=== PATIENT | male | born 1965 | race Caucasian/White ===

== ENCOUNTER 2016-08-29 17:55 | Inpatient (IN) | payer MEDICAID ==
[~2016-08-29] VITALS: Ht 185.4 cm; Wt 188.0 kg
--- NOTE | ~2016-08-29 | ER ---
PATIENT'S NAME: HARESH PRINCE [facility] AGE: 50 Y [address] ROOM: [place] [address] LOCATION: [facility] [place] ADMIT DATE: 08/29/2016 ER/Outpatient Report DISCHARGE DATE: FAMILY PHYSICIAN: RENU LAMAS ATTENDING PHYSICIAN: NITA DANIELLE Admission date and time documented are on the medical record. I saw the patient at 1815 hours. CHIEF COMPLAINT: Right leg pain and swelling. HISTORY OF PRESENT ILLNESS: This patient is a 50-year-old male who presented with right leg pain and swelling. It started last night. It has gotten a lot worse as far as the pain and the swelling goes today and unable to walk. He has been on Xarelto, but was stopped 1 month ago. He has a history of DVT. No chest pain or shortness of breath. No abdominal pain, nausea, vomiting, or diarrhea. No urinary symptomatology. No lightheadedness, dizziness, syncope, or near syncope. No fall or trauma. No recent colds, coughs, flus, fever, chills, or sweats. No headache, eyes, ears, nose, throat, neck, or spine pain. No skin eruptions or rash. Does have insulin-dependent diabetes. No other endocrine problems. No neuro changes or psych issues. HOME MEDICATIONS: See attached medication list. ALLERGIES: PENICILLIN. SOCIAL HISTORY: Nonsmoker, nondrinker. SIGNIFICANT PAST MEDICAL HISTORY: Morbid obesity, insulin-dependent diabetes mellitus type 2, hypertension, atherosclerotic ischemic heart disease with coronary artery disease, status post myocardial infarction, remote alcohol abuse, DVT, and cirrhosis. OPERATIONS: Umbilical herniorrhaphy, cystoscopy. REVIEW OF SYSTEMS: All systems reviewed by me are negative with the exception of those discussed in the history of present illness. PATIENT'S NAME: HARESH PRINCE [facility] AGE: 50 Y [address] ROOM: [place] [address] LOCATION: [facility] [place] ADMIT DATE: 08/29/2016 ER/Outpatient Report DISCHARGE DATE: FAMILY PHYSICIAN: RENU LAMAS ATTENDING PHYSICIAN: NITA DANIELLE PHYSICAL EXAMINATION: VITAL SIGNS: Temperature 100, tympanic, pulse 97, respirations 20, blood pressure 121/65, and O2 sat on room air is 97%. HEAD: Normocephalic. EYES: Extraocular muscles intact. PERRL. EARS, NOSE, THROAT: Clear. Mucous membranes moist. Teeth, jaw intact. NECK: No nuchal rigidity. No thyromegaly or cervical adenopathy. No tenderness. SPINE: Negative. LUNGS: Clear. No rales, rhonchi, or wheezes. HEART: Regular. Pulses are palpable. ABDOMEN: Obese, soft, nondistended, nontender. Good bowel tones. No organomegaly or abnormal mass palpable. EXTREMITIES: Swelling and pain in the right lower extremity. Some red streaking. Not hot to the touch. NEUROVASCULAR: Intact. Pulse intact. LABORATORY DATA: Serum acetone was negative. Venous pH was 7.50. White count was 3700, 57 segs, 31 lymphs, 8 monos, 4 eos, 1 baso, hemoglobin is 10.9 with hematocrit 34.6, and platelet count was 102,000. Sed rate is elevated at 38. PTT was 25, pro-time is 11.4 with an INR 1.1. CMS was normal except for an elevated glucose 407, low calcium of 8.4, CPK was 51. CRP was 1.3. Lactate was 2.4. Procalcitonin was 0.07. Hemoglobin A1c is pending. Venous Doppler study of the right leg showed DVT, [id number] common femoral, positive cath. EMERGENCY DEPARTMENT COURSE: I did give the patient Xarelto 20 mg orally in the emergency room. IMPRESSION: 1. Deep vein thrombosis, right leg, involving the common femoral. The patient has increased pain and swelling in the right leg. 2. Hypertension. 3. Insulin-dependent diabetes mellitus type 2, poorly-controlled. 4. Morbid obesity. 5. Atherosclerotic ischemic heart disease with coronary artery disease. 6. Past history of alcohol abuse with cirrhosis. PLAN: Discussed the patient with Dr. Au, hospitalist. We will admit the patient to observation MSU. Again, we did start him on Xarelto. Discussion ensued with the patient concerning my findings and recommendations, he understands. PATIENT'S NAME: HARESH PRINCE [facility] AGE: 50 Y [address] ROOM: [place] [address] LOCATION: [facility] [place] ADMIT DATE: 08/29/2016 ER/Outpatient Report DISCHARGE DATE: FAMILY PHYSICIAN: RENU LAMAS ATTENDING PHYSICIAN: NITA DANIELLE MD LUPE NGUYEN/gabriele /[id number] d: 08/29/16 2322 t: 08/30/16 1813, OUTPATIENT REPORT
--- NOTE | ~2016-08-29 | ENPV ---
Vascular Lower Extremities DVT Study Procedure Demographics Patient Name HARESH PRINCE Date of Study 09/01/2016 Patient Number [id number] Gender Male Date of 1965 Age 50 Visit Number [id number] Height Accession Number [id number] Weight Room Number G3217 BSA BMI Referring Osman King MD Physician MD Physician Cheyenne Melgar Physician Ordering Physician Wellhead Pumper Director Of Operations [facility]air [facility] Conclusions Summary Evidence of Chronic DVT in left proximal popliteal vein. Procedure Type of Study: Veins:Lower Extremities DVT Study, Lower Extremity Left. Indications for Study:Pain in Limb and Swelling of Limb. Appropriate Use Criteria:9 Patient Status:Routine. Study Location:Inpatient Portable. Technical Quality:Limited visualization due to body habitus. Risk Factors - The patient's risk factor(s) include: orally-treated diabetes mellitus, treated dyslipidemia, obesity, lack of physical activity and treated and controlled arterial hypertension. Velocities are measured in cm/s ; Diameters are measured in cm Left Lower Extremities DVT Study Measurements Left 2D and Doppler Measurements + + + + +------+------+ + !Location !Visualized!Compressibility!Thrombosis!Signal!Reflux!Reflux ! ! ! ! ! ! ! !(sec) ! + + + + +------+------+ + !GSV Thigh !Yes !Yes !None !Phasic! ! ! + + + + +------+------+ + !Common !Yes !Yes !None !Phasic! ! ! !Femoral ! ! ! ! ! ! ! + + + + +------+------+ + !Prox !Yes !Yes !None !Phasic! ! ! !Femoral ! ! ! ! ! ! ! + + + + +------+------+ + !Mid Femoral!Yes !Yes !None ! ! ! ! + + + + +------+------+ + !Dist !Yes !Yes !None !Phasic! ! ! !Femoral ! ! ! ! ! ! ! + + + + +------+------+ + !Popliteal !Yes !Yes !Chronic !Phasic! ! ! + + + + +------+------+ + !Gastroc !Yes !Yes !None ! ! ! ! + + + + +------+------+ + !PTV !Yes !Partial ! ! ! ! ! + + + + +------+------+ + !Peroneal !No ! ! ! ! ! ! + + + + +------+------+ + Impressions Left Impression Evidence of chronic deep vein thrombosis in the proximal popliteal vein. Signature dtt: TRAVIS PÉREZ dtd: 09/01/16 1347 Physician Self Virgen
--- NOTE | ~2016-08-29 | CON ---
PATIENT'S NAME: HARESH PRINCE [facility] AGE: 50 Y [address] ROOM: [place] [address] LOCATION: [place] ADMIT DATE: 08/29/2016 Consultation DISCHARGE DATE: FAMILY PHYSICIAN: RENU LAMAS MD ATTENDING PHYSICIAN: NITA DANILELE DATE OF CONSULTATION: 09/01/2016 REFERRING PHYSICIAN: David Liu MD REASON FOR VISIT/CONSULTATION: Venous stasis to bilateral lower extremities. HISTORY OF PRESENT ILLNESS: This is a 50-year-old male patient who was admitted to [facility] with a right lower leg DVT. He reports he has had 4 to 5 lower leg DVTs since 2012. He has previously been on Xarelto but suffered from a GI bleed. He reports in shelter he was on Coumadin. He also has a significant history of uncontrollable diabetes mellitus, type 2; essential hypertension; coronary artery disease; and morbid obesity. He quit smoking in 2006. He reports prior to admission, he noticed severe right lower extremity pain. He presented to the emergency room for further evaluation. The patient denies PE, denies heart failure, and chest pain. He has been instructed to wear gradient compression stockings but currently does not. He has had an Unna boot in the past due to venous insufficiency. He has also had venous ulcerations in the past. Currently, he has no ulcers to his lower extremities. The patient is sedentary and on disability. He does endorse intermittent claudication symptoms. Arterial duplex to the right leg showed no significant peripheral arterial disease. He denies fevers, chills, or sweats. He denies nausea or vomiting. He denies changes in bowel habits. He reports his blood sugars usually run in the 300s. He reports a good oral intake. PAST MEDICAL HISTORY: 1. Type 2 diabetes mellitus. 2. History of 4 to 5 DVTs since 2012. 3. Morbid obesity. 4. Essential hypertension. 5. Coronary artery disease. 6. Venous insufficiency. 7. Melena stools. 8. Depression. 9. Hepatitis C. PATIENT'S NAME: HARESH PRINCE [facility] AGE: 50 Y [address] ROOM: [place] [address] LOCATION: [place] ADMIT DATE: 08/29/2016 Consultation DISCHARGE DATE: FAMILY PHYSICIAN: RENU LAMAS MD ATTENDING PHYSICIAN: NITA DANIELLE PAST SURGICAL HISTORY: 1. Abdominal hernia repair. 2. Kidney stone removal. 3. Skin graft to lower leg. FAMILY HISTORY: The patient's parents suffered from diabetes. He also reports blood clots run in his family. Interestingly, he does not report being tested for blood genetic mutations. SOCIAL HISTORY: The patient lives with his daughter in [place], [place]. He is on disability. He quit smoking in 2006. He has a remote history of illegal substances, he reports he quit over 20 years ago. ALLERGIES: PENICILLIN. MEDICATIONS: Pertinent to this dictation: IV heparin. Please refer to the medication administration record for further details. REVIEW OF SYSTEMS: A 10-point review of systems was completed and all are negative except as mentioned above in the HPI. PHYSICAL EXAMINATION: VITAL SIGNS: Temperature 97.9, pulse 74, respirations 17, blood pressure 104/74, and pulse oximetry 96% on room air. Height 6 feet and 1 inch and weight is 188.0 kg. GENERAL: The patient is alert. Obese in nature. In no acute distress. HEENT: Head; normocephalic and atraumatic. Missing teeth noted. NECK: Short, obese. CHEST: Respirations even and unlabored. ABDOMEN: Round and obese. NEUROLOGIC: Grossly nonfocal. EXTREMITIES: +2 pedal pulses. +2 edema to the left leg and +1 edema to the right leg. Dark hemosiderin staining to bilateral lower legs. Capillary refill intact. Extremities are warm to touch. No ulceration noted. MUSCULOSKELETAL: Right calf tenderness. Positive Homans sign. SKIN: No open ulcers to lower legs, please see extremity assessment. Heels intact. Buttocks intact. Chronic venous dermatitis scaling to posterior legs. LABORATORY AND DIAGNOSTIC DATA: PATIENT'S NAME: HARESH PRINCE [facility] AGE: 50 Y [address] ROOM: [id number] [place] [id number] LOCATION: [place] ADMIT DATE: 08/29/2016 Consultation DISCHARGE DATE: FAMILY PHYSICIAN: RENU LAMAS MD ATTENDING PHYSICIAN: NITA DANIELLE White blood cell count 3.5, hemoglobin 10.5, hematocrit 34.6, and platelets 85,000. Sodium 139, potassium 4.0, chloride 105, bicarbonate 26, BUN 11, creatinine 0.8, and glucose 105. Prothrombin time of 12.5, INR of 1.2. Hemoglobin A1c is 10.0. Procalcitonin is 0.07. Lower extremity venous Doppler showed acute and chronic DVT to the right leg. Arterial duplex showed no significant PAD to right leg. ASSESSMENT AND PLAN: Again, this is a 50-year-old male patient who was admitted to [facility] with a right lower leg deep venous thrombosis. Wound Care is consulted to evaluate and assess venous staining to bilateral lower extremities. 1. Acute and chronic right lower extremity deep venous thrombosis. The patient is on heparin. Bridging to Coumadin. Hospitalist is managing. Send out labs for genetic blood mutations. 2. Venous insufficiency. The patient currently has no ulcers, but has had in the past. He has edema present. He has had an Unna boot therapy. He would benefit from compression therapy. Discussed the case with Dr. Liu. We will have the [facility] RN apply bilateral lower leg Unna boots today. The patient lives in [place] and has followed up with [facility] as well as his PCP, TATYANA Gross for Unna boot changes in the past. The patient is negative for peripheral arterial disease. Discussed elevation. Discussed ankle/calf pump muscle exercises. 3. Uncontrolled type 2 diabetes mellitus. Hemoglobin A1c is 10.0. Diabetic education on board. On sliding scale insulin and Levemir. 4. Morbid obesity. Discussed lifestyle modifications. 5. Essential hypertension. Stable. I would like to thank Dr. Liu for this consultation. JOSE CARLOS TOBIN APRN FOR MD VADIM ANGEL/gabriele /[id number] d: 09/01/161709 t: 09/11/161811, CONSULTATION REPORT
--- NOTE | ~2016-08-29 | ENPV ---
Vascular Lower Extremities DVT Study Procedure Demographics Patient Name HARESH PRINCE Date of Study 08/29/2016 Patient Number [id number] Gender Male Date of 1965 Age 50 Visit Number [id number] Height Accession Number [id number] Weight Room Number G3217 BSA BMI Referring Shiv Davis MD Interpreting Justina Mejia MD Physician Physician Physician Ordering Physician Shiv Davis Single Pointed Operator Long Chain Beamer Kari Diallo [facility] Conclusions Summary There is moderate interstitial edema noted below the knee in the calf and ankle/foot. Partially occlusive thrombus within the superficial femoral vein mid to lower aspect appears chronic. Occlusive thrombus within the lower leg - posterior tibial and peroneal veins - is likely acute. IMPRESSION: ACUTE AND CHRONIC DVT IN THE RIGHT LEG. Procedure Type of Study: Veins:Lower Extremities DVT Study, Lower Extremity Right. Patient Status:Routine. Study Location:ER. Technical Quality:Poor visualization due to body habitus. Risk Factors - The patient's risk factor(s) include: orally-treated diabetes mellitus, treated dyslipidemia, obesity, lack of physical activity and treated and controlled arterial hypertension. Velocities are measured in cm/s ; Diameters are measured in cm Right Lower Extremities DVT Study Measurements Right 2D and Doppler Measurements + + + + +------+------+ + !Location !Visualized!Compressibility!Thrombosis!Signal!Reflux!Reflux ! ! ! ! ! ! ! !(sec) ! + + + + +------+------+ + !GSV Thigh !Yes !Yes !None !Phasic! ! ! + + + + +------+------+ + !Common !Yes !Yes !None !Phasic! ! ! !Femoral ! ! ! ! ! ! ! + + + + +------+------+ + !Prox !Yes !Yes !None !Phasic! ! ! !Femoral ! ! ! ! ! ! ! + + + + +------+------+ + !Mid Femoral!Yes !Partial !Chronic !Phasic! ! ! + + + + +------+------+ + !Dist !No !Partial !Chronic !Phasic! ! ! !Femoral ! ! ! ! ! ! ! + + + + +------+------+ + !Popliteal !Yes !No !None !Phasic! ! ! + + + + +------+------+ + !PTV !Yes !No !Sub-acute !Absent! ! ! + + + + +------+------+ + !Peroneal !Yes !No !Sub-acute !Absent! ! ! + + + + +------+------+ + Left Lower Extremities DVT Study Measurements Left 2D and Doppler Measurements + + + + +------+------+ + !Location !Visualized!Compressibility!Thrombosis!Signal!Reflux!Reflux ! ! ! ! ! ! ! !(sec) ! + + + + +------+------+ + !Common !Yes !Yes !None !Phasic! ! ! !Femoral ! ! ! ! ! ! ! + + + + +------+------+ + Signature dtt: Skyler Horn dtd: 08/29/16 1913 Physician Self Edit
--- NOTE | ~2016-08-29 | CON ---
PATIENT'S NAME: HARESH PRINCE [facility] AGE: 51 Y [address] ROOM: [place] [address] LOCATION: [facility] [place] ADMIT DATE: 08/29/2016 Consultation DISCHARGE DATE: 09/09/2016 FAMILY PHYSICIAN: RENU LAMAS MD ATTENDING PHYSICIAN: Travis Thompson ADDENDUM: Colonoscopy was done on 09/04/2016. A biopsy was done from the patchy areas of inflammation which was at the ascending colon distal to cecum. MD JOCELYN FERREIRA/gabriele /[id number] d: 12/25/16 2234 t: 12/28/16 1739, CONSULTATION REPORT
--- NOTE | ~2016-08-29 | CON ---
PATIENT'S NAME: HARESH PRINCE [facility] AGE: 50 Y [address] ROOM: [address] [place], [place] [address] LOCATION: [facility] [place] ADMIT DATE: 08/29/2016 Consultation DISCHARGE DATE: FAMILY PHYSICIAN: RENU LAMAS MD ATTENDING PHYSICIAN: NITA DANIELLE DATE OF CONSULTATION: 09/03/2016 REASON FOR CONSULT: Acute on chronic DVT to right lower extremity and failed anticoagulation. HISTORY OF PRESENT ILLNESS: This is a 50-year-old male admitted to [facility] with right lower leg DVT. Since admission, he has been started on IV heparin to bridge with Coumadin. The patient was supposed to discharge today as his INR is 2.7; however, upon assessment by hospitalist team, the patient was found to have bloody stools. The patient was also found to have factor V Leiden, heterozygous positive. He reports that he has had 4 to 5 lower leg DVTs since 2012. The patient has previously trialed Xarelto, but suffered a GI bleed at that time. He also reports of a history of being on Coumadin. Family history is significant for DVTs as well. He reports that his sister and his father both from pulmonary embolisms. The patient denies any pulmonary embolism in his history. Venous duplex revealed chronic DVT to left popliteal vein, and on the right side, a partially occlusive superficial femoral vein with chronic clot and occlusive acute thrombus in the posterior tibial and peroneal veins. The patient has a history of diabetes mellitus, type 2, uncontrolled; essential hypertension, coronary artery disease, and morbid obesity. The patient reports that he does have a tobacco history; however, he quit smoking in 2006. His largest complaint today is severe right lower extremity pain. He denies any shortness of breath, chest pain, nausea, vomiting, or diarrhea. He denies any abdominal pain. Denies any lightheadedness or dizziness. Positive for bloody stools. The patient reports to have a history of chronic venous insufficiency and that he has had Unna boots in the past. The patient has been seen by Wound Care on this visit, and he is currently in Unna boots per Wound Care. The patient has no open venous ulcers. The patient does complain of claudication; however, arterial duplex was unimpressive with no significant peripheral arterial disease. PAST MEDICAL HISTORY: 1. Type 2 diabetes mellitus. 2. Previous DVTs, multiple, since 2012. 3. Morbid obesity. 4. Essential hypertension. 5. Coronary artery disease. 6. Venous insufficiency. PATIENT'S NAME: HARESH PRINCE [facility] AGE: 50 Y [address] ROOM: [place] [address] LOCATION: [facility] [place] ADMIT DATE: 08/29/2016 Consultation DISCHARGE DATE: FAMILY PHYSICIAN: RENU LAMAS MD ATTENDING PHYSICIAN: NITA DANIELLE 7. Melenic stools. 8. Depression. 9. Hepatitis C. PAST SURGICAL HISTORY: 1. Abdominal hernia repair. 2. Kidney stone removal. 3. Skin graft to lower leg. FAMILY HISTORY: Mother with cirrhosis of the liver. Father with coronary artery disease, diabetes, and blood clots. The patient reports that his father of pulmonary embolism. Sister also of a pulmonary embolism. Daughter with hiatal hernia and gastric reflux. SOCIAL HISTORY: The patient lives with his daughter in [place], [place]. The patient is currently on disability. He denies any current tobacco, illegal substance abuse, or alcohol use. He does have a history of illegal substance abuse which he states he quit 20 years ago. CURRENT MEDICATIONS: See medication reconciliation. ALLERGIES: NO KNOWN ALLERGIES. REVIEW OF SYSTEMS: A 10-point review of systems completed, positives addressed in the History of Presenting Illness. PHYSICAL EXAMINATION: VITAL SIGNS: Temperature 98.4, heart rate 78, respiratory rate 16, blood pressure 116/63, and oxygen saturation is 96%. GENERAL: The patient is morbidly obese, in no acute distress. He is alert and oriented x3. Pain to right medial thigh on palpation. SKIN: Warm, pink, and dry. No rashes or ulcerations. HEENT: Head: Normocephalic and atraumatic. Ears: Without drainage. Eyes: Sclerae are white. Conjunctivae are pink. Extraocular movements intact. PERRLA. Nose: Without drainage. Throat: Oral mucosa pink and moist. No exudate or erythema. NECK: Without adenopathy. No evidence of JVD. Trachea midline. No carotid bruit. RESPIRATORY: Lung sounds clear to auscultation bilaterally. Even and unlabored. PATIENT'S NAME: HARESH PRINCE [facility] AGE: 50 Y [address] ROOM: [address] [place], [place] [address] LOCATION: [facility] [place] ADMIT DATE: 08/29/2016 Consultation DISCHARGE DATE: FAMILY PHYSICIAN: RENU LAMAS MD ATTENDING PHYSICIAN: NITA DANIELLE CARDIOVASCULAR: Regular rate and rhythm. S1 and S2. No murmur or extra sounds. ABDOMEN: Soft, nontender, and obese. Bowel sounds active x4. EXTREMITIES: Patient with Unna boots bilaterally per Wound Care. The patient has no open ulcers at this time. Radial and femoral pulses 2+. Swelling and erythema to right medial thigh. No cyanosis. Active range of motion throughout. NEUROLOGICAL: No focal deficits. Strength equal bilaterally at 5/5. LABORATORY DATA: Hematology from September 02: White blood cell count 3.5, hemoglobin 10.3, hematocrit 34.0, and platelets 86. INR 2.7 and PTT 30.3. ASSESSMENT AND PLAN: 1. Acute on chronic right lower extremity deep venous thrombosis. The patient has currently failed anticoagulation with recurrent gastrointestinal bleed. The patient also has a significant family history of from pulmonary embolism as well as a significant personal history of lower extremity deep venous thromboses. Therefore, the patient is a candidate for IVC filter placement with Dr. Dominguez to prevent embolus to the lungs. Dr. Dominguez discussed risks and benefits with the patient, and the patient is in agreement with the plan. The plan is to take the patient to the cathode maker for an IVC filter placement today. We will go ahead and transfuse the patient with 2 units of FFP to bring the INR down. INR is currently 2.7. We will recheck PT and INR after transfusion for a goal of INR of less than 2. The patient's Coumadin has been placed on hold. He continues on a heparin drip. We will stop this prior to intervention. 2. Chronic venous insufficiency. The patient is currently in Unna boots and tolerating well. 3. Coronary artery disease. The patient is asymptomatic. Usually, the patient is on Plavix; however, this is on hold currently for the bleeding. Thank you for your consultation and for allowing us to participate in the care of this patient. PEDRITO LUNDBERG APRN FOR MD KATHY ANGEL/gabriele /[id number] d: 09/03/16 1254 t: 09/11/16 1815, CONSULTATION REPORT
--- NOTE | ~2016-08-29 | CATH ---
Peripheral Diagnostic + Interventional Report Demographics Patient Name NIKI Fuentes Gender Male Date of 1965 Age 50 year(s) Patient Number [id number] Date of Study 09/03/2016 Visit Number [id number] Room Number G3217 [place] [id number] Ht 154.94 cm Wt 188 kg Referring [facility] Primary Physician Physician Geraldine MCBRIDE Performing [facility] Secondary Physician Physician Geraldine MCBRIDE Diagnostic [facility] Assisting Physician Physician Geraldine MCBRIDE Interventional [facility] Physician Boxing Inspector Physician Geraldine MCBRIDE Findings and Conclusions Peripheral Findings and Conclusions Successful deployment of a retrievable IVC filter. Peripheral Recommendations Please restart oral anticoagulation if able to after GI work up. f/u in [facility] clinic in 3 months and if able to tolerate OAC without bleeding issues would like to retrive the filter. Procedure Description The patient was brought to the diagnostic cardiac catheterization-EP laboratory in the fasting, non-sedated state. Informed consent was obtained in the written and verbal form after the risks and benefits were explained. The patient had no further questions and agreed to proceed. The planned puncture-incision site(s) were shaved and prepped with ChloraPrep. After a three minute dry time the patient was draped in the usual sterile manner. Conscious sedation and pain control medications were delivered by a registered nurse under physician guidance. Surface ECG rhythm, blood pressure measurement, supplemental oxygen, and pulse oximetry were monitored throughout the procedure. Ultrasound was used to evaluate vessel patency and to aid in access. Inferior Venacava Filter Placement: After an Inferior Venocavagram was performed and IVC filter was placed below the level of the renal veins. Post venocavogram after IVC filter placed showed good position without any extravasation of contrast. The patient was transferred to the nursing floor with continuous monitoring via cart accompanied by a nurse. The patient left the laboratory in stable condition. Peripheral Procedure Description Retrievable IVC filter placement for acute GI bleeding on coumadin in patient with acute DVT and Factor V Leiden deficiency. Diagnostic Cath Status: Urgent Procedure Procedure Type Peripheral Cath Diagnostic Procedure Peripheral vascular Intervention:IVC Filter: The procedure was explained in detail to the patient. Risks, complications and alternative treatments were reviewed. Written consent was obtained. Medications Reviewed with Patient prior to Procedure. Angiographic Findings Procedure Data Procedure Date Date: 09/03/2016Start: 02:57 PMEnd: 03:35 PM Entry Locations - Percutaneous access was performed through the Right Femoral vein (Primary location). A 7 Fr sheath was inserted. Hemostasis was successfully obtained using Manual Compression. Closure Comments: Pressure held by Simran. Procedure Medications Order and Administration + + +-------+------+ !Time !Medication !Dosage !Route ! + + +-------+------+ 09/03/2016 02:51 PM !Fentanyl !50 mcg !I.V. ! + + +-------+------09/03/2016 02:59 PM !Versed !1 mg !I.V. ! + + +-------+------09/03/2016 03:03 PM !Versed !1 mg !I.V. ! + + +-------+------+ 09/03/2016 03:31 PM !Fentanyl !50 mcg !I.V. ! + + +-------+------+ Contrast Material - Isovue 13716 ml Fluoroscopy Time: Diagnostic: 3:00 minutes. Total: 3:00 minutes. Fluoroscopy Dose: Diagnostic: 257 mGy. Total: 257 mGy. Estimated Blood Loss: 5 ml. Medical History Allergies - Penicillin. Risk Factors The patient risk factors include:peripheral arterial disease, obesity, physical activity, uncontrolled hypertension, orally-treated diabetes mellitus, dyslipidemia, former tobacco use and prior heart failure . Admission Data Admission Date: 08/29/2016 Admission Time: 08:18 PM Admit Source: Emergency department Insurance Payors: Medicaid. Hemodynamics Condition: Rest O2 Consumption: Estimated: 318.69Heart Rate: 82 bpm Shunts Oxygen Values O2 Capacity 138.72 O2 Consumption 318.69 Signatures dtt: GERALDINE HOPKINS dtd: 09/03/16 1457 Physician Self Edit
--- NOTE | ~2016-08-29 | CON ---
PATIENT'S NAME: VLADISLAV PRINCE [facility] AGE: 50 Y [address] ROOM: [address] [place] [address] [place] [facility] [place]: 08/29/2016 Consultation DISCHARGE DATE: FAMILY PHYSICIAN: RENU LAMAS MD ATTENDING PHYSICIAN: NITA DANIELLE Consult to Mirtha Macedo. REASON FOR CONSULTATION: Vladislav Prince is a 50-year-old man with left deep venous thrombosis, rectal bleeding, and the heterozygous factor V Leiden mutation. HISTORY OF PRESENT ILLNESS: The history of the present illness is obtained from Mr. Prince whose history is of questionable veracity on occasions; from his physician's market research assistant, Mirtha Macedo PA-C; and from review of the current and old [facility] chart. Mr. Prince was in his normal state of health until 08/28/2016. He lived in [place], [place] with his 27-year-old daughter, 42-year-old son-in-law, and 42- year-old concubine. The patient has been disabled since May 2016 due to leg ulcers related to venous insufficiency and diabetes mellitus. The patient could drive. He did not have a cane or walker though attempts were being made to get him one. He was on no formal occupational or physical therapy program. He was capable of self-care. He could vacuum, clean the garage, and do other light work. The patient has been paroled for 6 months after 16 years [facility] The patient is limited by dyspnea on exertion and bilateral leg pain if he walks more than [id number]. On 08/28/2016, the patient developed right leg swelling, pain, and erythema. The patient was on clopidogrel for anticoagulation therapy and had faithfully taken that. The pain, swelling, and erythema progressed overnight and he called his physicians in [place], [place]. The patient was instructed to report to [facility] and was hospitalized on 08/29/2016. An ultrasound of the right leg revealed acute and chronic deep venous thrombosis. The patient was placed on an unfractionated heparin infusion and oral warfarin. Upon admission, the white count was 3700 with 57% neutrophils and 31% lymphocytes, the hemoglobin was 10.9, the MCV was 85, and the platelets were 102,000. The INR was 1.1, the PTT was 25, and the ESR was 38 mm/hr. The CMS was remarkable for an elevated globulin of 4.6 g/dL, the albumin was 2.8 g/dL, and the glucose was 407 mg/dL. The hemoglobin A1c was 10%. The cholesterol was 117 mg/dL, the HDL cholesterol was 45 mg/dL, and the LDL cholesterol was 49 mg/dL. The prothrombin mutation was not present, but the factor V Leiden mutation was present, heterozygous. The lupus anticoagulant was positive, but PATIENT'S NAME: VLADISLAV PRINCE [facility] AGE: 50 Y [address] ROOM: [place] [address] [place] [facility] [place] DATE: 08/29/2016 Consultation DISCHARGE DATE: FAMILY PHYSICIAN: RENU LAMAS MD ATTENDING PHYSICIAN: NITA DANIELLE the assay was not diagnostic as the patient was on heparin anticoagulation and, in any case, he has never had the assay done before. The patient's right leg swelling, pain, and erythema improved. However, today, the patient developed rectal bleeding. An inferior vena cava filter was placed today after warfarin anticoagulation was reversed with 2 units of fresh frozen plasma. Mr. Prince first developed deep venous thrombosis in the left leg in 2012. He was placed on heparin, then warfarin anticoagulation and took warfarin continually through 2016. That being said there was some confusion because there was no sign he was on it on the reconciliation medication list when he was seen in 2016. The patient complained of rectal bleeding at that point. The patient underwent an upper GI endoscopy. This revealed petechial hemorrhage and erythema of the body and antrum of the stomach along with scattered erosions. The patient also underwent a colonoscopy. This revealed large thrombosed external hemorrhoids. Recommendations for surgical evaluation were made. Topical therapy was administered for the hemorrhoids. The prep was not excellent so the retread mold operator recommended a followup colonoscopy in 1-3 years. The patient was discharged on rivaroxaban. Upon admission to [facility] with this hospitalization, he was only on clopidogrel, but no other direct oral anticoagulant or warfarin. Mr. Prince has multiple risk factors for hyperlipidemia besides being heterozygous for the factor V Leiden mutation. The patient has a body mass index of 54.6 kg/m2 and is relatively sedentary. He has type 2 diabetes mellitus, arterial hypertension, and hyperlipidemia. He has a strong family history of DVT. His father had many episodes of deep venous thrombosis and pulmonary emboli and at age 50. He had a sister age 49 who following bariatric surgery that was complicated by a PE. The patient had a sister who of a "blood clot to the brain" at 40. He does not know if any family members were tested for hereditary thrombophilia. Of course, the patient has chronic venous insufficiency. ACTIVE MEDICAL PROBLEMS, CHRONIC, AND DIAGNOSED: 1. Type 2 diabetes mellitus noted in 2000. The patient's diabetes has been complicated by leg ulcers possibly also due to venous insufficiency. He also has a numb left foot and is on gabapentin for this. His blood sugars usually run 300-400 mg/dL at home. He is on metformin and insulin. 2. ? Essential arterial hypertension ? noted in 1991. This was labile enough to require hospitalization in 2013. 3. Atherosclerotic heart disease? The patient did have an AL in 2000, but this complicated methamphetamine ingestion. The patient did get an PATIENT'S NAME: VLADISLAV PRINCE [facility] AGE: 50 Y [address] ROOM: [place] [address] [place] [facility] [place]: 08/29/2016 Consultation DISCHARGE DATE: FAMILY PHYSICIAN: RENU LAMAS MD ATTENDING PHYSICIAN: NITA DANIELLE. 4. Tobacco use. The patient averaged 2-3 pack per day for 30 years, but has abstained from tobacco since 2006. 5. Class IV obesity. The patient's BMI is 54.6 kg/m2. The patient wants to do bariatric surgery and was working on it until this was complicated. 6. Atherosclerotic vascular disease ? The patient is on pentoxifylline. 7. Alcoholism. The patient has abstained since 2006 and he was an alcoholic before and goes to Alcoholics Anonymous. He would drink homemade corn whiskey. He would drink to get drunk for many years. 8. Drugs of abuse. The patient has used amphetamine, LSD, cocaine, heroin, and psilocybin over the years, but has abstained since 2006. 9. Depression, noted in 2013. The patient had anhedonia after his , he was placed on sertraline. 10. Nephrolithiasis, on one occasion in 2006. 11. Allergic rhinitis in the spring treated with antihistamines. 12. 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 13. Cholelithiasis noted on sonogram in 2016. There was one gallstone. 14. Grade 2 pseudonormal diastolic dysfunction with moderate concentric left ventricular hypertrophy. 15. Chronic venous insufficiency. The patient has left leg DVT in 2012 and now on the right. 16. Migraine headaches for many years treated with nonsteroidals and Tylenol. ACUTE MEDICAL ILLNESS (RESOLVED), PAST SURGERIES, INJURIES: 1. 1976, left ankle fracture. 2. 2000, hepatitis C, resolved after the patient underwent parenteral injections for 1 year. This was a very rigorous regimen. Indeed his anti-HCV titer is positive. 3. 2006, left wrist fracture. 4. 2006, cystoscopy with stone removal. 5. 2014, umbilical herniorrhaphy. 6. 2014, left leg surgery with skin graft. MEDICATIONS UPON HOSPITALIZATION: 1. Acetaminophen. 2. Clopidogrel 75 mg p.o. daily. 3. Furosemide 20 mg p.o. b.i.d. 4. Gabapentin 100 mg p.o. t.i.d. 5. Hydrochlorothiazide 25 mg p.o. daily. 6. Insulin glargine 25 units subcu b.i.d. 7. Insulin lispro sliding scale. 8. Lisinopril 10 mg p.o. q.24 h. PATIENT'S NAME: VLADISLAV PRINCE [facility] AGE: 50 Y [address] ROOM: [place] [address] [place] [facility] [place] DATE: 08/29/2016 Consultation DISCHARGE DATE: FAMILY PHYSICIAN: RENU LAMAS MD ATTENDING PHYSICIAN: NITA DANIELLE 9. Metformin 1000 mg p.o. b.i.d. 10. Metoprolol 50 mg p.o. b.i.d. 11. Nitroglycerin 0.4 mg sublingually p.r.n. 12. Pentoxifylline 400 mg p.o. b.i.d. 13. KCl 20 mEq p.o. daily. ADVERSE REACTIONS TO MEDICATIONS, TRANSFUSIONS, ALLERGIES: 1. Penicillin has led to urticaria. 2. Fresh frozen plasma 2 units on 09/03/2016. Tobacco: 2-3 pack per day for 30 years abstained since 2006. Alcohol: Abstained since 2006-on Alcoholics Anonymous. The patient drank heavily for many years and drank to get drunk almost everyday. Caffeine: a. Fortified diet sodas a day. b. Two pots of coffee a day. c. A jar of tea daily in the summer. Drugs of abuse: The patient has not abused any illegal drugs since 2006, but he has used methamphetamine, LSD, cocaine, heroin, and mushroom in the past. FAMILY HISTORY: 1. Father many DVTs and pulmonary emboli at age 50. 2. Sister age 49 of a PE complicating bariatric surgery. 3. A sister of a blood clot to the brain. IMMUNIZATIONS HISTORY: Not obtained. SOCIAL HISTORY: The patient was born in [facility] and left school after 9th grade and got up to the 10th grade while attempting to get his GED. The patient was in [facility] [employer] [facility] for many years, but was recently paroled. The patient has ta daughter who currently lives with him, a daughter in [place], [place]. He has a child in [place], 2 in [place], and 1 in [place]. He has been on 2 occasions and is currently living with a concubine. He is not a religion goer. REVIEW OF SYMPTOMS: 1. Chronic productive cough, greenish yellow sputum. 2. Occasional heartburn treated with Pepto-Bismol. 3. Dental problems. 4. Orthostatic dizziness. The patient sometimes falls when standing on a couple of occasions. 5. Frontal and occipital headaches for 20 years about monthly. Rarely associated with nausea, but positive photophobia and relieved by aspirin PATIENT'S NAME: VLADISLAV PRINCE [facility] AGE: 50 Y [address] ROOM: [place] [address] [place] [facility] [place] DATE: 08/29/2016 Consultation DISCHARGE DATE: FAMILY PHYSICIAN: RENU LAMAS MD ATTENDING PHYSICIAN: NITA DANIELLE and naproxen. PHYSICAL EXAMINATION: VITAL SIGNS: Pulse 80 and regular, blood pressure is 115/60, respiratory rate 18, temperature 98.4, and SpO2 91% on room air. Height upon admission 73 inches, weight 188 kg (414 pounds), and BMI 54.6 kg/m2. GENERAL: Well-developed obese 50-year-old, male, in no acute distress. HEENT: Teeth in poor repair. LYMPH NODES: None palpable. NECK: Without JVD or carotid bruits. SKIN: Nevi, warts, seborrheic keratoses, tattoos on the arms. CHEST: Decreased breath sounds. CV: Decreased S1, S2. No murmurs, bruits, or adventitious sounds. ABDOMEN: Healed umbilical herniorrhaphy scar. No masses, tenderness, or organomegaly. GENITALIA AND RECTAL: Uncircumcised. EXTREMITIES: Pulses 2+ in the upper extremities. The patient has Werner wraps on the lower extremities. RECTAL: It is not practical to do as the patient is instructed to lie on his back. IMPRESSION: A 50-year-old man with: 1. Acute right deep venous thrombosis at risk due to class IV obesity, longstanding venous insufficiency, heterozygosity for the factor V Leiden mutation, type 2 diabetes mellitus, chronic liver disease, arterial hypertension, sedentary lifestyle, and hyperlipidemia. It appears the patient was not fully anticoagulated. However, his history is shaky and of questionable veracity. 2. Uncharacterized rectal bleeding x2. The patient has had hemorrhoids in the past. 3. Given the bleeding, it is reasonable to place a removable inferior vena cava filter. We need to keep in mind the hemorrhoids could be a manifestation of increased venous pressure from his liver disease as well. 4. The patient's thrombocytopenia, leukopenia, and anemia could all be related to hypersplenism from portal hypertension from alcoholic liver disease and possibly nonalcoholic fatty liver disease. 5. Anticoagulation recommendations do not change based on his heterozygosity for the factor V Leiden mutation. 6. The patient needs to be on lifelong anticoagulation. RECOMMEND DIAGNOSTIC: Colonoscopy as planned. PATIENT'S NAME: VLADISLAV PRINCE [facility] AGE: 50 Y [address] ROOM: [address] [place] [id number] [place] [facility] [place] DATE: 08/29/2016 Consultation DISCHARGE DATE: FAMILY PHYSICIAN: RENU LAMAS MD ATTENDING PHYSICIAN: NITA DANIELLE TREATMENT: 1. Address the cause of GI bleeding. 2. Discontinue warfarin anticoagulation at this point. PATIENT EDUCATION: 1. Discussed his risk factors for the DVT. 2. Discussed the rationale for the current approach to his treatment. JAIDEN GARCIA MD GKB/modl /[id number] CC: MD Olivia CLOUD MD Anuradha Tunuguntla, MD Franz K Murphy, MD d: 09/03/16 2351 t: 09/07/16 1532, CONSULTATION REPORT
--- NOTE | ~2016-08-29 | HP ---
PATIENT'S NAME: HARESH PRINCE [facility] AGE: 50 Y [address] ROOM: [address] [place] [address] [place]: [facility] [place] ADMIT DATE: 08/29/2016 History & Physical DISCHARGE DATE: FAMILY PHYSICIAN: RENU LAMAS ATTENDING PHYSICIAN: NITA DANIELLE DATE OF SERVICE: CHIEF COMPLAINT: Right lower extremity pain. HISTORY OF PRESENT ILLNESS: This is a 50-year-old male morbidly obese with a history of left DVT last year and positive family history of DVT in both sisters and dad who has comes in with right lower extremity pain, which started last night as per patient. He reported that this morning the pain was still there; however, he went about his daily activity and at around 2 p.m., the pain got severe. He rates the pain as 8/10 at the onset last night and today it went up to a 10 and because of the worsening pain he decided to come into the ER. The patient has a sedentary lifestyle and daughter reports that he does not move around much at home and he just sits in one spot most of the time. Denies chest pain. Denies shortness of breath. Denies headache. He also notes some diarrhea for the last 3-4 days about 3-4 episodes per day, watery, and nonbloody. He reports that he stopped his blood thinner, which was a month ago because of recurrent rectal bleed. This was started by Dr. Armstrong in [place] after which the patient presented there with lower GI bleed, which was found to be rectal bleeding. He denies fever. He also notes some chronic lower quadrant abdominal pain, which has not changed in severity. Denies shortness of breath. REVIEW OF SYSTEMS: The 13 elements of review of systems were asked and as documented in the HPI. The others are negative. PAST MEDICAL HISTORY: Includes coronary artery disease, history of left DVT last year, diabetes, morbid obesity, essential hypertension, and history of kidney stones. SOCIAL HISTORY: Lives with his daughter. Stopped smoking 11 years ago. Smoked for about 20 years 3 packs per day. Stopped smoking while he was in penitentiary. Denies use of alcohol. Denies use of any illicit drugs. FAMILY HISTORY: Both parents . Father in his 60s from aneurysm and blood PATIENT'S NAME: HARESH PR[facility] AGE: 50 Y [address] ROOM: [address] [place] [address] LOC[place]: [facility] [place]MIT DATE: 08/29/2016 History & Physical DISCHARGE DATE: FAMILY PHYSICIAN: RENU LAMAS ATTENDING PHYSICIAN: NITA DANIELLE. Mother alcoholic in her 60s from cirrhosis. He has two sisters with DVT and one has . PAST SURGICAL HISTORY: Includes cardiac cath, umbilical hernia repair, and kidney stone removal. PHYSICAL EXAMINATION: VITAL SIGNS: Blood pressure 140/83, temperature 98.5, respiratory rate 16, pulse 94, and oxygen saturation 95% on room air. GENERAL: Reveals a morbidly obese, young male who is alert, awake, oriented x3, in mild painful discomfort. NEUROLOGIC: Cranial nerves 2 through 12 are intact bilaterally. Sensory is intact bilaterally. Power is 5/5 in both upper extremities and left lower extremity, unable to check power on right lower extremity, secondary to the pain. HEENT: Normocephalic, atraumatic. Pupils equal and reactive to light bilaterally. Pharynx is normal. NECK: Short, obese, features of someone who would have obstructive sleep apnea. EARS: No obvious ear discharge or drainage. CARDIOVASCULAR: Normal S1, S2. Regular rate and rhythm. CHEST: Decreased breath sounds all over the chest field, secondary to obese chest wall. ABDOMEN: Soft, distended, obese. No area of tenderness. No palpable organomegaly. Positive bowel sounds. EXTREMITIES: He has got 1+ pitting pedal edema of the right lower extremity, tender, but there is no joint swelling, erythema, or tenderness. SKIN: He has got chronic venous dermatitis involving the skin of bilateral lower extremity. He has also got tattoo louise over the skin of the upper extremity. LABORATORY DATA: ABG pH 7.50, pCO2 39, and pO2 116. Lactic acid 2.4. WBC 3.7, H and H 10.9/34.6, and platelet 102. Sodium 139, creatinine 1.0, BUN 13, glucose 407. Sodium 138, potassium 4.3, chloride 102, bicarb 28, calcium 8.4, albumin 2.8, AST 38, ALT 47, alk phos 108, total bili 0.6. ESR 38. Hemoglobin A1c 10.0. INR 1.1. CRP 1.3. Procalcitonin 0.07. ASSESSMENT AND PLAN: This is a 50-year-old male with a right lower extremity pain. 1. Acute right lower-extremity deep vein thrombosis, present on admission. We will continue on heparin drip. We will do hemophilia workup, going through his records, this has not been done in the past. So, check factor V Leiden, prothrombin gene mutation, and lupus anticoagulant. 2. Pancytopenia of unknown etiology, probably from bone marrow suppression, PATIENT'S NAME: HARESH [facility] AGE: 50 Y [address] ROOM: [place] [address] LOCATION: [facility] [place] ADMIT DATE: 08/29/2016 History & Physical DISCHARGE DATE: FAMILY PHYSICIAN: RENU LAMAS ATTENDING PHYSICIAN: NITA DANIELLE probably from fatty liver. 3. Diabetes type 2 with hyperglycemia, poorly-controlled. We will start the patient on long-acting insulin. We will most probably discharge him on that. 4. Right lower extremity pain from acute deep vein thrombosis; however, we will also do an arterial duplex scan to rule out any arterial thrombosis. 5. Essential hypertension, present on admission, stable, continue the patient on his medication. 6. Acute diarrhea, unknown etiology, we will check stool for C. diff, stool for ova and parasites. 7. Morbid obesity. Place on diet restriction. 8. Coronary artery disease, no angina, stable. The line of management was explained to the patient who did not have any questions at this time. MD DANIEL PALMER/harmanl /[id number] D: T: 501 HISTORY & PHYSICAL
--- NOTE | ~2016-08-29 | ENPV ---
Vascular Lower Extremities Arterial Duplex Procedure Demographics Patient Name HARESH PRINCE Date of Study 08/31/2016 Patient Number [id number] Gender Male Date of 1965 Age 50 Visit Number [id number] Height Accession Number [id number] Weight Room Number G3217 BSA BMI Referring Osman King MD Physician Physician Cheyenne Davis MD Physician Ordering Cheyenne Davis Sight Mounter Physician Projector Booth Operator Amado Bustos [facility] Conclusions Summary Duplex imaging of the right leg reveals no significant peripheral arterial disease . Procedure Type of Study: Extremities Arteries:Lower Extremities Arterial Duplex, Arterial Lower Extremity Right. Indications for Study:Pain in Limb. Appropriate Use Criteria:9 Patient Status:Routine. Study Location:Inpatient Portable. Technical Quality:Adequate visualization. Risk Factors - The patient's risk factor(s) include: orally-treated diabetes mellitus, treated dyslipidemia, obesity, lack of physical activity and treated and controlled arterial hypertension. Velocities are measured in cm/s ; Diameters are measured in cm LE Duplex Measurements + ++-----+ +----+---+ + ! !!Right! !Left! ! ! + ++-----+ +----+---+ + !Location !!PSV !Wave Desc. ! !PSV!Wave Desc. ! + ++-----+ +----+---+ + !Femoral !!76 !Biphasic ! !83 !Triphasic ! + ++-----+ +----+---+ + !PFA !!44 !Biphasic ! ! ! ! + ++-----+ +----+---+ + !Prox SFA !!123 !Triphasic ! ! ! ! + ++-----+ +----+---+ + !Mid SFA !!85 !Biphasic ! ! ! ! + ++-----+ +----+---+ + !Dist SFA !!88 !Biphasic ! ! ! ! + ++-----+ +----+---+ + !Prox Popliteal !!66 !Biphasic ! ! ! ! + ++-----+ +----+---+ + !Dist Popliteal !!45 !Biphasic ! ! ! ! + ++-----+ +----+---+ + !Mid DIAMOND DIE DRILLER !!53 !Biphasic ! ! ! ! + ++-----+ +----+---+ + !Mid MARIBELL !!31 !Biphasic ! ! ! ! + ++-----+ +----+---+ + !DP !!21 !Biphasic ! ! ! ! + ++-----+ +----+---+ + Signature dtt: TRAVIS PÉREZ dtd: 08/31/16 1104 Physician Self Edit
--- NOTE | ~2016-08-29 | LTR ---
PATIENT'S NAME: HARESH PRINCE [facility] AGE: 50 Y [address] ROOM: [place] [address] LOCATION: [facility] [place] ADMIT DATE: 08/29/2016 Letter DISCHARGE DATE: 09/09/2016 FAMILY PHYSICIAN: RENU LAMAS MD ATTENDING PHYSICIAN: Edelmira Quinn September 09, 2016 To [facility] Re: HARESH PRINCE was seen in consultation on 08/29/2016. Since that time, other developments have occurred. The patient's warfarin anticoagulation was discontinued. A removable inferior vena cava filter was placed by Dr. Angel on 09/03/2016. Dr. Angel recommends removal of this in 3 months if he can tolerate his oral anticoagulation without bleeding. We agree with that recommendation. The patient's colonoscopy was performed by Dr. Norma Stone on 09/04/2016. There was a small patch of inflammation at the ascending colon, distal to the cecum. Otherwise, there was no sign of bleeding. Dr. Stone did not describe any AV malformations, diverticula, or polyps. He did not describe any hernia either. The pathology report revealed focal active colitis. The patient was placed on warfarin anticoagulation again. If he has no excessive bleeding, the patient should be on warfarin anticoagulation indefinitely as long as his risk factors continue to be serious. If the patient were to undergo bariatric surgery and there was marked improvement in his other cardiovascular risk factors, perhaps he would not need lifelong anticoagulation, but this is certainly not the case at this point and may never be. The patient did not need any further specialized Hematology and Oncology followup. The patient was heterozygous for his factor V Leiden mutation, but would have needed lifelong anticoagulation whatever the factor V Leiden mutation status was. REPORT TITLE: MD YANE Guy/gabriele /[id number] PATIENT'S NAME: HARESH PRINCE [facility] AGE: 50 Y [address] ROOM: [place] [address] LOCATION: [facility] [place] ADMIT DATE: 08/29/2016 Letter DISCHARGE DATE: 09/09/2016 FAMILY PHYSICIAN: RENU LAMAS MD ATTENDING PHYSICIAN: Edelmira Quinn CC: MD Olivia Payan MD Franz K Murphy, MD GREGORY E MCCLANAHAN, MD
--- NOTE | ~2016-08-29 | DS ---
PATIENT'S NAME: HARESH PRINCE [facility] AGE: 50 Y [address] ROOM: [id number] [place] [address] LOCATION: [facility] [place] [place] ADMIT DATE: 08/29/2016 Discharge Summary DISCHARGE DATE: 09/09/2016 FAMILY PHYSICIAN: RENU LAMAS MD ATTENDING PHYSICIAN: Edelmira Quinn PRINCIPAL DIAGNOSES: 1. Right leg acute and chronic deep vein thrombosis. 2. Left lower extremity chronic deep vein thrombosis. 3. Diabetes mellitus type 2 with hyperglycemia. 4. Diabetic neuropathy. 5. Diabetic peripheral vascular disease. 6. Morbid obesity. 7. Chronic venous insufficiency. 8. Factor V Leiden disorder, newly diagnosed. PRINCIPAL PROCEDURE: IVC filter placed by Dr. English on September 03, 2016. HOSPITAL COURSE: Please reference any of the admitting data to the history and physical as dictated by Dr. Edelmira Quinn. Briefly, a 50-year-old male, who presented to the hospital with right lower extremity pain and a known history of a DVT. He was found to have an acute right lower extremity DVT, present on admission. He was admitted and started on a heparin drip per DVT protocol. He was given IV and oral analgesia for the pain in his leg. He was started on therapies to mobilize. Coagulopathy workup revealed positive for factor V Leiden disorder. Hematology-Oncology consultation, recommendations were obtained. Further investigation of his lower extremities with arterial duplex showed no significant peripheral artery disease in the right lower extremity or left lower extremity. Further review of venous duplex showed evidence of a chronic DVT in the left proximal popliteal vein. An official read of the right lower extremity showing an area of partially occlusive thrombus in the superficial femoral vein, mid to lower aspect, appearing chronic with the new thrombus noted in the posterior tibial and peroneal veins. He was then started on Coumadin on 08/30/2016. He was also started back on his Plavix at that time for concern of his peripheral vascular disease. As we did laboratory monitoring when bridging with Coumadin and heparin, on the , the patient had noted bloody stools. Anticoagulation was placed on hold and consultation for IVC filter was done with [facility]. FFP was given to reverse the anticoagulation effect, and was actually taken by Dr. English of Cardiology for IVC filter placement. He underwent this procedure without any complication. As for his GI bleed, Dr. Stone of Gastroenterology was consulted. He was given a Suprep on the and taken for a colonoscopy on the . There, he was found to have no apparent cause for the bleeding. There was some concern for external hemorrhoids, but PATIENT'S NAME: HARESH PRINCE [facility] AGE: 50 Y [address] ROOM: [place] [address] LOCATION: [facility] [place] [place] ADMIT DATE: 08/29/2016 Discharge Summary DISCHARGE DATE: 09/09/2016 FAMILY PHYSICIAN: RENU LAMAS MD ATTENDING PHYSICIAN: Edelmira Quinn nothing active. On the , the heparin drip was then resumed as his hemoglobin was stable and no evidence of source of bleeding. He was then given a loading dose of warfarin and started on Proctosol per rectum twice daily. He had no further evidence of rectal bleeding for the remainder of his stay. We observed him over the next few days and trended his INR and his hemoglobin. His hemoglobin remains stable, greater than 10. His INR trended upwards to 1.6, and on the day of discharge, the heparin drip was stopped and he was converted to Lovenox injections. He was given education on self administration. He did so without any complication. It was elected that the patient would go home with Lovenox bridging until INR is greater than 2.0 with goal being 2.0 to 3.0. The remaining of the patient's chronic conditions were maintained with his home medicines. His diabetes mellitus was observed with blood glucose checks before each meal and at bedtime. His insulin regimen was adjusted accordingly and increased from his home regimen as his A1c was 10.0. We increased both his long-acting insulin, provided a corrective sliding scale and a scheduled prandial dosing for each meal. Diabetes education was given. The patient had came in on Plavix and Trental given the patient's coronary artery disease and peripheral vascular disease. Discussion with Cardiology felt that it was in the best interest of the patient to keep those medications on hold while on Coumadin given 2 factors while hospitalized to include the lower GI bleeding as well as a platelet count of 85 and 86 when the patient was initially admitted, even though it had recovered to 120 and 121. The patient will follow up with Cardiology as an outpatient to discuss the further need and use of anti-platelet therapy. The patient was given physical therapy and restorative plan during his hospitalization, and was mobilizing safely; however, was requiring a wheeled walker to ambulate. LABORATORY DATA: Pertinent positives as described above. Most recent CBC showed a white blood cell count of 3.6, hemoglobin of 10.6, hematocrit of 34.7, and a platelet count of 120, this was up from 85 and 86 respectively. Hemoglobin remained greater than 10 during his hospitalization. Most recent chemistry panel on 09/05 showed a glucose of 128, a BUN of 11, a creatinine of 0.7, sodium 141, potassium of 3.9, a chloride of 109, a CO2 of 25, a calcium of 8.2, a total protein of 7.1, an AST of 38, an ALT of 42, an alkaline phosphatase of 90, a total bilirubin of 0.6, magnesium of 2.2, and GFR of greater than 60. Sedimentation rate was 38. Hemoglobin A1c was 10.0. His lipid panel was taken on 08/31, showed a total cholesterol of 117, triglycerides of 115, HDL of 45, and an LDL of 49. INR at discharge was 1.6. Factor V Leiden was positive for heterozygous disease. PATIENT'S NAME: HARESH PRINCE [facility] AGE: 50 Y [address] ROOM: [place] [address] LOCATION: [facility] [place] [place] ADMIT DATE: 08/29/2016 Discharge Summary DISCHARGE DATE: 09/09/2016 FAMILY PHYSICIAN: RENU LAMAS MD ATTENDING PHYSICIAN: Edelmira Quinn RADIOLOGIC IMAGING: None. CONSULTING PROVIDERS: 1. Dr. Dominguez, Vascular. 2. Dr. English, Cardiology. 3. Kari Castellano, [facility], Wound Care. 4. Dr. Lucio Baker, Hematology. PROCEDURE: IVC filter insertion by Dr. English. CARDIOLOGY STUDIES: Venous duplex scan showed chronic DVT in the left proximal popliteal vein and partially occlusive thrombus within the superficial femoral vein, mid to lower aspect, appearing chronic. There was occlusive thrombus within the lower leg in the posterior tibial and peroneal veins, likely acute. Arterial duplex did not show any significant peripheral artery disease. DISCHARGE MEDICATIONS: 1. Furosemide 20 mg p.o. twice daily. 2. Gabapentin 100 mg p.o. 3 times daily. 3. Hydrochlorothiazide 25 mg p.o. every day. 4. Hydrocortisone cream to be applied to the rectum twice daily until stop date 09/12 at 2100 hours. 5. Humalog insulin 4 to 10 units subcutaneous before meals and at bedtime as per sliding scale as follows:. a. Blood glucose 201 to 250 equals 4 units. b. Blood glucose 251 to 300 equals 6 units. c. Blood glucose 301 to 350 equals 8 units. d. Blood glucose 351 to 400 equals 10 units. 6. NovoLog 15 units subcutaneous 3 times daily with meals. 7. Levemir 33 units subcutaneous twice daily. 8. Metoprolol tartrate 50 mg p.o. twice daily. 9. Lisinopril 10 mg p.o. every day. 10. Potassium chloride 20 mEq p.o. every day. PCP to manage based upon lab results. 11. Coumadin 7.5 mg p.o. every day at 1600 hours. PCP to manage and titrate accordingly to goal of 2.0 to 3.0. 12. Acetaminophen/hydrocodone 5/325 mg 1 to 2 tablets p.o. every 4 hours as needed. 13. Glucophage 1000 mg p.o. twice daily. 14. Tylenol 325 to 650 mg p.o. every 6 hours as needed, maximum 4000 mg per day. 15. Nitrostat 0.4 mg sublingual as needed as directed on the bottle. 16. Glucose tablets 16 g p.o. as needed for hypoglycemia. PATIENT'S NAME: HARESH PRINCE [facility] AGE: 50 Y [address] ROOM: [address] [address] LOCATION: [facility] [place] [place] ADMIT DATE: 08/29/2016 Discharge Summary DISCHARGE DATE: 09/09/2016 FAMILY PHYSICIAN: RENU LAMAS MD ATTENDING PHYSICIAN: Edelmira Quinn 17. Aspirin 81 mg p.o. daily. 18. Glucagon 1 mg subcutaneous as needed for hypoglycemia. 19. Lovenox 180 mg subcutaneous twice daily until INR is greater than or equal to 2.0. PCP to manage. A prescription was also written for a standard walker given unsteady gait of the patient. DISCHARGE INSTRUCTIONS: Diet to be ADA. Activity to be as tolerated with wheeled walker. Followups to include: 1. [facility] Cardiology on Friday, September 30, 2016, at 11:45 a.m. There is a plan to remove IVC filter if able to tolerate oral anticoagulation in 3 months' time. 2. To follow up with Dr. Lamas at the [facility] on September 10 at 3:00 p.m., at this time a PT/INR will be drawn. Recommendations for the PCP to manage Coumadin based upon INR levels. Goal is 2.0 to 3.0. He also has a basic metabolic panel and complete blood count drawn at the same time. He should also bring in his blood glucose monitor to adjust his insulin regimen accordingly. 3. He is to follow up with the [facility] in [place] that has been seeing him previously. An appointment is made for Wednesday, September 14, 2016, at 1:00 p.m. 4. He is to follow up with [facility]. Their clinic will call him to schedule an appointment given the patient's positive factor V Leiden, which is newly diagnosed. The patient was given a Lovenox teaching prior to discharge. He was given education about diabetes. Recommendations were made for blood glucose checks before each meal and at bedtime, sliding scale insulin instructions were given. It was also discussed with the patient that his Plavix and Trental had been stopped after discussion with Cardiology. He will need to follow up with them to see if there will be a need to resume antiplatelet medicines outside of the baby aspirin which he was sent home with. He was also encouraged to have an outpatient sleep study evaluation as soon as possible, to be arranged by his PCP. The above line of management and instructions were discussed with the patient. All questions were answered with statements of understanding. Total time arranging discharge greater than 30 minutes. PATIENT'S NAME: HARESH PRINCE [facility] AGE: 50 Y [address] ROOM: [place] [address] LOCATION: [facility] [place] [place] ADMIT DATE: 08/29/2016 Discharge Summary DISCHARGE DATE: 09/09/2016 FAMILY PHYSICIAN: RENU LAMAS MD ATTENDING PHYSICIAN: Edelmira Quinn JONNATHAN BRAGA APRN, APRN FOR JAYLENE HAMM MD JIRamón/modl /[id number] CC: RENU LAMAS MD d: t: 09/10/16 0351, DISCHARGE SUMMARY
--- NOTE | ~2016-08-29 | CON ---
PATIENT'S NAME: HARESH PRINCE [facility] AGE: 50 Y [address] ROOM: [place] [address] LOCATION: [facility] [place] ADMIT DATE: 08/29/2016 Consultation DISCHARGE DATE: FAMILY PHYSICIAN: RENU LAMAS MD ATTENDING PHYSICIAN: NITA DANIELLE REASON FOR CONSULTATION: This is a 50-year-old male, seen for GI bleeding. HISTORY OF PRESENT ILLNESS: A 50-year-old gentleman who was admitted with history of lower GI bleeding. He has a history of diabetes mellitus, hypertension, coronary artery disease without stenting. He also had chest pain at the time of admission, which was sharp in character, 7 to 10 in intensity. Pain was radiating to the left arm and left shoulder and relieved with nitroglycerin drip. He had multiple episodes of bright red blood per rectum, and one episode of hematemesis with bright red blood. He went to the local emergency room where he was admitted with a diagnosis of colitis. PAST MEDICAL HISTORY: 1. Coronary artery disease, myocardial infarction in 2000 without stent placement. 2. History of DVT, and he is taking Xarelto. 3. Morbid obesity. 4. Hypertension. 5. Diabetes mellitus. ALLERGIES: NO KNOWN DRUG ALLERGIES. MEDICATIONS: Per AUG. REVIEW OF SYSTEMS: A 10-point review of system was negative other than mentioned above. PHYSICAL EXAMINATION: GENERAL: Reveals a well-developed male, who is not in acute discomfort. VITAL SIGNS: Pulse is 94 per minute, temperature 98.1 degrees Fahrenheit, blood pressure 130/65, weight is 188 pounds. HEENT: Head: Normocephalic, atraumatic. NECK: Supple. No lymphadenopathy. CHEST: Clear to palpation, percussion, and auscultation. CARDIAC: Both heart sounds are normal. No S3. No murmur. ABDOMEN: Soft, it is nontender. No hepatosplenomegaly. No ascites. The patient is morbidly obese. PATIENT'S NAME: HARESH PRINCE [facility] AGE: 50 Y [address] ROOM: [place] [address] LOCATION: [facility] [place] ADMIT DATE: 08/29/2016 Consultation DISCHARGE DATE: FAMILY PHYSICIAN: RENU LAMAS MD ATTENDING PHYSICIAN: NITA DANIELLE EXTREMITIES: He has edema of both lower extremities. He has history of DVT. NEUROLOGICAL: Cranial nerves II through XII intact. Motor and sensory system intact. MUSCULOSKELETAL: Moves all joints but is limited because of obesity and his current condition. LABORATORY DATA: Shows his hemoglobin is 11 g, it was 10.3 yesterday, platelet count 133,000. Prothrombin time is 17.2, INR is 1.6, INR had come down from 2.7. The pH of 7.5, pO2 of 116. Lactate 2.4. Glucose 131. Albumin 2.6, globulin 4.6, AST is 38, ALT 47. Magnesium 1.9. Blood culture was negative. ASSESSMENT AND PLAN: Mr. Prince has a history of bleeding and has had bright red blood per rectum, has not had EGD or colonoscopy. I would recommend that we should do a colonoscopy to find out if he has source of bleeding. I discussed with him the possibility of hemorrhoidal bleeding. Since he has recently been taking Xarelto, it may not be possible to do band ligation, however, needs to be evaluated for acute lower gastrointestinal bleeding. He has multiple other issues, which are being addressed by the hospitalist. We appreciate sharing care of this patient. MD JOCELYN FERREIRA/gabriele /[id number] CC: RENU LAMAS MD d: t: 09/07/16 0850, CONSULTATION REPORT
[~2016-08-29 17:55] MED LIST: ADVIL200 MG PO; ANUSOL-HC CREAM30 GM TOP; ANUSOL-HC25 MG R; BENTYL20 MG PO; DELTASONE10 MG PO; ELAVIL100 MG PO; GLUCOPHAGE1000 MG PO; GLUCOTROL 5MG XL5 MG PO; HUMALOG100 UNIT/1 SUB-Q; K-TAB ER20 MEQ PO; LASIX20 MG PO; LOPRESSOR50 MG PO; PRINIVIL OR ZES10 MG PO; TRENTAL400 MG PO; TYLENOL325 MG PO; XARELTO15 MG PO
[2016-08-29 18:45] LABS: BASOPHIL % 0.5 %; EOSINOPHIL # 0.2 K/uL (0.0-0.5); HEMATOCRIT 34.6 % (37.0-53.0); HEMOGLOBIN 10.9 g/dL (12.0-17.0); IMMATURE GRANULOCYTE % 0.3 %; LYMPHOCYTE # 1.1 K/uL (0.8-4.0); LYMPHOCYTE % 30.7 %; MCH 26.8 pg (27.0-34.0); MCHC 31.5 gm/dL (32.0-36.5); MONOCYTE # 0.3 K/uL (0.0-1.0); MONOCYTE % 7.5 %; MPV 11.4 fl (9.4-12.4); NEUTROPHIL # (ANC) 2.1 K/uL (1.4-9.0); NRBC % 0 /100WBC (0-0.00); PLATELET COUNT 102 K/uL (150-450); RBC 4.06 M/uL (4.00-6.00); RDW-CV 14.6 % (11.9-14.6); WBC 3.7 K/uL (4.0-11.0)
[2016-08-29 18:46] LABS: MCV 85.2 fl (83.0-98.0)
[2016-08-29 18:56] LABS: INR - (THERAPEUTIC) 1.1 (0.9-1.1); PROTIME 11.4 SECONDS (9.6-11.1); PTT 25 SECONDS (25-32)
[2016-08-29 19:04] LABS: ALBUMIN 2.8 gm/dL (3.5-5.0); ALK PHOS 108 IU/L (33-138); ALT 47 IU/L (12-78); ANION GAP 12.3 (10.0-19.0); AST 38 IU/L (10-40); BLOOD UREA NITROGEN 13 mg/dL (6-24); CALCIUM 8.4 mg/dL (8.5-10.5); CHLORIDE 102 mMol/L (96-110); CO2 28 mMol/L (22-32); CPK 51 IU/L (35-332); ESTIMATED GFR (MDRD EQUATION) > 60; POTASSIUM 4.3 mMol/L (3.7-5.1); SODIUM 138 mMol/L (135-145); TOTAL PROTEIN 7.4 g/dL (6.0-8.4)
[2016-08-29 19:08] LABS: TOTAL BILIRUBIN 0.6 mg/dL (0.0-1.5)
[2016-08-29 19:19] LABS: BICARBONATE 30.4 mmol/L (18.0-23.0); PCO2 39 mmHg (35-45); PO2 116 mmHg (80-90)
[2016-08-30] MEDS ORDERED: NITROSTAT0.4 MG SL (02:46)
[2016-08-30] MEDS ORDERED: LANTUS (IN100 UNIT/M SUB-Q (02:47)
[2016-08-30] MEDS ORDERED: PLAVIX75 MG PO (02:48)
[2016-08-30] MEDS ORDERED: HYDROCHLOROTHIA25 MG PO (02:48)
[2016-08-30] MEDS ORDERED: NEURONTIN100 MG PO (02:49)
--- NOTE | 2016-08-30 04:06 | NUR ---
Significant Event: 50 year old male admitted with R)lower leg DVT. Started on Heparin protocol and strict bedrest. BS in ER was 400, at 2300 was 249. His AIC was 10. Next PTTHP will be at 730 am. Alert and orientated, pleasant and cooperative with cares. Also hx of Hep C and hypertension. Follow up: Need a stool for C-diff and O/P.
--- NOTE | 2016-08-30 17:04 | NUR ---
Significant event: Patient is alert and oriented x3. VSS. On room air. Is on moderate sliding scale and had 2units this morning and 6 units at lunch. Last [place] was at 1600. Pt is to not have ANY POP or JUICE. only tea, water, lemonade. Is on bedrest, may be up to bedside commode with one assist, ONLY. Is on Heparin drip, next PTHP is due at 2030. Is on 1800 diabetic diet. Right leg has some redness to inner thigh/knee area and is very sensitive to touch. Is cooperative with cares.
[2016-08-31 05:39] LABS: BASOPHIL % 0.6 %; EOSINOPHIL # 0.2 K/uL (0.0-0.5); EOSINOPHIL % 4.6 %; HEMATOCRIT 34.6 % (37.0-53.0); HEMOGLOBIN 10.5 g/dL (12.0-17.0); IMMATURE GRANULOCYTE % 0.3 %; LYMPHOCYTE # 1.3 K/uL (0.8-4.0); LYMPHOCYTE % 38.5 %; MCH 26.5 pg (27.0-34.0); MCHC 30.3 gm/dL (32.0-36.5); MCV 87.4 fl (83.0-98.0); MONOCYTE # 0.2 K/uL (0.0-1.0); MONOCYTE % 4.9 %; MPV 11.4 fl (9.4-12.4); NEUTROPHIL # (ANC) 1.8 K/uL (1.4-9.0); NEUTROPHIL % 51.1 %; NRBC % 0 /100WBC (0-0.00); PLATELET COUNT 85 K/uL (150-450); RBC 3.96 M/uL (4.00-6.00); RDW-CV 14.6 % (11.9-14.6); WBC 3.5 K/uL (4.0-11.0)
--- NOTE | 2016-08-31 05:41 | NUR ---
Significant Event: Uneventful night, Perocoet given about every 4 hours for right shoulder pain. Up and voided a small amount during the night. 1-2 assist at times. Pleasant and cooperative with cares. Alert and orientated. Dr Dominguez to see today to check on fistula to see if he thinks it will be ok to use. Follow up: Continue to winnie.
--- NOTE | 2016-08-31 05:49 | NUR ---
Significant Event: Patient became nauseated during the night and an order for Zofran was obtain, vomited about 50 ml of phlegm. [place] 2 tabs given last at 0405 for pain in his right lower leg. Continues on heparin and next PTTHP will be at 0900. Last dose was theraputic. No pop or fruit juices per MD. Follow up: Continue to monitor.
[2016-08-31 06:02] LABS: ALBUMIN 2.6 gm/dL (3.5-5.0); ANION GAP 11.3 (10.0-19.0); BLOOD UREA NITROGEN 14 mg/dL (6-24); CALCIUM 8.2 mg/dL (8.5-10.5); CHLORIDE 104 mMol/L (96-110); CO2 26 mMol/L (22-32); CREATININE 0.8 mg/dL (0.6-1.3); ESTIMATED GFR (MDRD EQUATION) > 60; PHOSPHORUS 2.4 mg/dL (2.5-4.9); POTASSIUM 4.3 mMol/L (3.7-5.1); SODIUM 137 mMol/L (135-145)
[2016-08-31 06:22] LABS: INR - (THERAPEUTIC) 1.1 (0.9-1.1)
--- NOTE | 2016-08-31 12:20 | NUR ---
1220 Introduced self/role to patient. He lives in [place] with his daughter, son-in-law and girldfriend. The only need he could think of was maybe a walker, he [place]. I told him I could get a script on the chart then he can see about filling it at [facility]. They can run it thru his Medicaid to see if it would be covered, might be a co-pay. Script placed on chart. Wrote my name on his marker board, will continue to follow.
--- NOTE | 2016-08-31 16:38 | NUR ---
[facility] 1600 CDE visited with patient regarding A1C 10 % currently. Patient states he has been taking insulin Levemir 20 units at home, and sliding scale Novolog with meals. Provided Diabetes management booklet and Diabetes Survival Skills Checklist, encouraged patient to complete this evening. Will assess educational needs on 09/01/16 a.m.
--- NOTE | 2016-08-31 16:46 | NUR ---
AAOx3. Cooperative with cares. Off of BR. May ambulate in halls w/assistance. IVF and Vanco infusing w/out complication. VSS, afebrile, on RA. BS AC/HS w/SSI given; also long acting insulin. No Pop and No Juices. Bilat LE venous staining. WOC consult in. Gave [place] 2 tabs x2.
--- NOTE | 2016-09-01 04:02 | NUR ---
Significant Event: Pt is alert and oriented. VSS on RA. IV to the R)hand IVF and heparin running. ACHS accuchecks. Diabetic diet, no pop/juice. Venous staining to the lower extremities. [place]mlin last given at 1944 Follow Up: Ambulate. Continue to monitor.
[2016-09-01 06:04] LABS: INR - (THERAPEUTIC) 1.2 (0.9-1.1); PROTIME 12.5 SECONDS (9.6-11.1)
[2016-09-01 06:05] LABS: BLOOD UREA NITROGEN 11 mg/dL (6-24); CALCIUM 8.4 mg/dL (8.5-10.5); CHLORIDE 105 mMol/L (96-110); CO2 26 mMol/L (22-32); CREATININE 0.8 mg/dL (0.6-1.3); ESTIMATED GFR (MDRD EQUATION) > 60; SODIUM 139 mMol/L (135-145)
--- NOTE | 2016-09-01 10:38 | NUR ---
Diabetes Center note: 1000 Patient completed the diabetes survival skills checklist and CDE provided education regarding several topics that patient needed review of. Patient is currently taking insulin at home and now the new orders that were started here in hospital are to add 15 units of Novolog at each meal plus mild sliding scale. Patient has only been using a mild sliding scale at home, we discussed the timing of insulin injections, action, storage and importance of follow up with TATYANA Holman in [place] for on-going evaluation of blood sugars after dismissal from hospital. A1C was 10 %, discussed importance of obtaining proper control, goal 7 % A1C to assist in reducing risks of complications related to heart, eyes, kidneys and nerves AND DVT's. Medical Alert information provided to patient to obtain, since he is taking insulin and a blood thinner. Patient agrees to purchase. A copy of the Diabetes Management Booklet is provided to patient and patient is given a copy of the Education provided on the Survival Skills Assessment form. CDE offered education/review of meal plan education and patient denied need for this topic at this time, states he knows that he needs to reduce portion sizes. Ros Melchor RN in [place] has provided educaiton in the past and patient is encouraged to call to schedule appt with her if he feels necessary, when he sees TATYANA Holman in [place] for follow up visits.
--- NOTE | 2016-09-01 17:28 | NUR ---
AAOx3. Cooperative with cares. Up w/assist only. Bilat Un[place] boots per WOC placed. IVF d/c'd; Heparin still running @52ml/hr. PTTHP @0642 (Q24hr). BS AC/HS w/moderate SSI and long acting. ADA 1800kcal. No pop, no juice. Refused Trental. Gave [place] 2tabs x1 today.
--- NOTE | 2016-09-02 04:38 | NUR ---
Significant Event: PATIIENT IS ALERT AND ORIENTATED X4 ACHS BS WAS 277 INSULIN GIVEN. AMBULATE WITH ONE ASSIST. BILATERALLY DANN BOOTS. ADA DIET 1800 ARISTIDES. PATIENT NEEDS REMINDING NOT TO DRINK POP OR JUICE. COOPERATIVE WITH CARES. IV HEPARIN PATIENT HAS DVT IN RIGHT LOWER LEG IS NOW HAVING PAIN IN LEFT LEG. UNABLE TO RULE OUT NEW DVT TO LEFT LEG AT THIS TIME HAS PREVIOUS HISTORY OF L) DVT. WILL HAVE MORE TEST TODAY. . Follow up: CONTINUE MONITORING FOR DVT. ENCOURAGE WALKING.
[2016-09-02 06:39] LABS: BASOPHIL % 0.6 %; EOSINOPHIL # 0.2 K/uL (0.0-0.5); EOSINOPHIL % 4.3 %; HEMOGLOBIN 10.3 g/dL (12.0-17.0); IMMATURE GRANULOCYTE % 0.3 %; LYMPHOCYTE # 1.5 K/uL (0.8-4.0); LYMPHOCYTE % 42.2 %; MCH 26.6 pg (27.0-34.0); MCHC 30.3 gm/dL (32.0-36.5); MCV 87.9 fl (83.0-98.0); MONOCYTE # 0.3 K/uL (0.0-1.0); MPV 11.9 fl (9.4-12.4); NEUTROPHIL # (ANC) 1.6 K/uL (1.4-9.0); NEUTROPHIL % 44.6 %; NRBC % 0 /100WBC (0-0.00); PLATELET COUNT 86 K/uL (150-450); RBC 3.87 M/uL (4.00-6.00); RDW-CV 15.4 % (11.9-14.6); WBC 3.5 K/uL (4.0-11.0)
[2016-09-02 06:49] LABS: INR - (THERAPEUTIC) 1.7 (0.9-1.1); PROTIME 19.1 SECONDS (9.6-11.1)
--- NOTE | 2016-09-02 13:20 | NUR ---
Diabetes Consult: Visited with the patient this morning regarding his diabetes. Patient reports CDE answered all his questions yesterday. Fasting blood sugar 116 this morning. Patient does seem to have elevated blood sugars in the 200's prior eating lunch. He is receiving Novolog 15 units with meals. This may need to be increased at breakfast time. The patient is receiving a Levemir 33 units twice daily, creating a peak mid day that could have constributed to his blood sugar at 89 around 1530 yesterday. No recommendations at this time. Will continue to trend blood sugars today and reevaluate in the morning.
--- NOTE | 2016-09-02 15:42 | NUR ---
Is A/O.Has unaboots on.Had 2 Norcos at 0754 & 1255 for pain behind both knees.IV in Lt.hand.Has heparing drip.Eating & drinking well.Voiding ok & had a stool.Pharmacy did coumadin teaching.Has been up with walker & 1 assist.Is alittle stiff when walking.States more pain when he gets up.Probably home tomorrow.
--- NOTE | 2016-09-02 17:11 | NUR ---
Is A/O.Has SL in Lt.anticubital.Has cervical brace on.Has had 6 loose foul smelling greenish colored stools.Has had no pain meds.Amb with walker & 1 assist,does well.Not much appetite.Alot of gas & heartburn.Had [place]lanta this afternoon.Held B/P meds as has been low & colace & miralax held.May go home tomorrow.
[2016-09-03 03:47] LABS: INR - (THERAPEUTIC) 2.7 (0.9-1.1); PROTIME 30.3 SECONDS (9.6-11.1)
--- NOTE | 2016-09-03 05:23 | NUR ---
Significant Event: ALERT AND ORIENTED X4. BED REST USES URINAL. AMBULATES WITH ONE ASSIST. BILATERAL DANN BOOTS. NO POP OR JUICE NEED TO BE REMINDED. CONTINUES ON HEPARIN IV. SEE SHEET IN ROOM FOR INFORMATION. DVT TO R) LOWER LEG. L) LEG HAS BEEN CONFIRMED TO BE A OLD DVT WITH NO NEW GROWTH. GAVE 12 NORCO AT BEGINNING OF SHIFT AND ZOFRAN MID SHIFT FOR NAUSEA. Follow up:
[2016-09-03 09:25] LABS: BASOPHIL % 0.9 %; EOSINOPHIL # 0.1 K/uL (0.0-0.5); EOSINOPHIL % 4.2 %; HEMATOCRIT 33.2 % (37.0-53.0); HEMOGLOBIN 10.2 g/dL (12.0-17.0); IMMATURE GRANULOCYTE % 0.3 %; LYMPHOCYTE % 28.5 %; MCH 26.8 pg (27.0-34.0); MCHC 30.7 gm/dL (32.0-36.5); MCV 87.1 fl (83.0-98.0); MONOCYTE # 0.2 K/uL (0.0-1.0); MONOCYTE % 6.6 %; MPV 11.4 fl (9.4-12.4); NEUTROPHIL % 59.5 %; NRBC % 0 /100WBC (0-0.00); PLATELET COUNT 86 K/uL (150-450); RBC 3.81 M/uL (4.00-6.00); RDW-CV 15.4 % (11.9-14.6); WBC 3.3 K/uL (4.0-11.0)
[2016-09-03 09:39] LABS: BLOOD UREA NITROGEN 11 mg/dL (6-24); CALCIUM 8.2 mg/dL (8.5-10.5); CHLORIDE 105 mMol/L (96-110); CO2 26 mMol/L (22-32); CREATININE 0.8 mg/dL (0.6-1.3); ESTIMATED GFR (MDRD EQUATION) > 60; SODIUM 138 mMol/L (135-145)
--- NOTE | 2016-09-03 10:13 | NUR ---
PT SCREENED D/T LOS. EST NEEDS: 9938-7229 KCALS, 96-116 GM PROTEIN, 1 ML/KCAL FLUIDS. INTAKE 100%. NO NUTRITION-RELATED DIAGNOSIS IDENTIFIED.
[2016-09-03 14:10] LABS: PROTIME 23.6 SECONDS (9.6-11.1)
[2016-09-03 14:12] LABS: INR - (THERAPEUTIC) 2.1 (0.9-1.1)
--- NOTE | 2016-09-03 14:21 | NUR ---
Is A/O.Heparin drip was restarted & coumadin stopped.Had 2 units of FFP & is going to get a IDC filter put in yet today.Also had 2 bloody stools of bright red in the water so seeing GI doctor for GI bleed & is to have a colonoscopy tomorrow.Has unaboots on.Inner Rt.knee pain.Had 2 [place] at 0810.Has been up with 1 assist & walker. Has positive factor 5 leiden & saw him this afternoon.Eating & drinking well.
[2016-09-03 16:45] LABS: HEMATOCRIT 33.8 % (37.0-53.0); HEMOGLOBIN 10.2 g/dL (12.0-17.0)
[2016-09-04 00:25] LABS: HEMATOCRIT 33.8 % (37.0-53.0); HEMOGLOBIN 10.1 g/dL (12.0-17.0)
--- NOTE | 2016-09-04 04:06 | NUR ---
Significant Event:pt is a/o x3. pt is a 1-sba. iv to l hand is sl. pt will be npo as of 0500 this morning for colonoscopy. consents are signed and preop checklist started on chart. groin site from ivc insert yesterday is c/d/i and site is soft but tender. pt has elder unaboots and c/o pain to right leg around the knee. accuchecks ac/hs, bs was 128. held 33 units of lantus last night with pt approval due to npo status. norco 2 tabs given x2 last @ 0307. pt had last dose of sureprep and having watery bm's at this time Follow up:colonoscopy this today for ligation of internal hemorrhoids
[2016-09-04 05:25] LABS: BASOPHIL % 0.9 %; EOSINOPHIL # 0.2 K/uL (0.0-0.5); EOSINOPHIL % 3.4 %; HEMATOCRIT 38.1 % (37.0-53.0); HEMOGLOBIN 11.6 g/dL (12.0-17.0); IMMATURE GRANULOCYTE % 0.4 %; LYMPHOCYTE # 1.1 K/uL (0.8-4.0); LYMPHOCYTE % 23.2 %; MCH 26.6 pg (27.0-34.0); MCHC 30.4 gm/dL (32.0-36.5); MCV 87.4 fl (83.0-98.0); MONOCYTE # 0.4 K/uL (0.0-1.0); MONOCYTE % 7.7 %; MPV 11.4 fl (9.4-12.4); NEUTROPHIL % 64.4 %; NRBC % 0 /100WBC (0-0.00); RBC 4.36 M/uL (4.00-6.00); RDW-CV 15.4 % (11.9-14.6); WBC 4.7 K/uL (4.0-11.0)
[2016-09-04 05:26] LABS: PLATELET COUNT 123 K/uL (150-450)
[2016-09-04 05:31] LABS: INR - (THERAPEUTIC) 2.3 (0.9-1.1); PROTIME 25.8 SECONDS (9.6-11.1)
[2016-09-04 05:34] LABS: ANION GAP 14.1 (10.0-19.0); BLOOD UREA NITROGEN 9 mg/dL (6-24); CALCIUM 8.7 mg/dL (8.5-10.5); CHLORIDE 105 mMol/L (96-110); CO2 26 mMol/L (22-32); CREATININE 0.8 mg/dL (0.6-1.3); ESTIMATED GFR (MDRD EQUATION) > 60; POTASSIUM 4.1 mMol/L (3.7-5.1); SODIUM 141 mMol/L (135-145)
[2016-09-04 07:59] LABS: HEMATOCRIT 36.2 % (37.0-53.0)
[2016-09-04 11:26] LABS: PROTIME 17.2 SECONDS (9.6-11.1)
[2016-09-04 11:27] LABS: INR - (THERAPEUTIC) 1.6 (0.9-1.1)
--- NOTE | 2016-09-04 11:30 | NUR ---
I have examined the student charting and find it acceptable. Robin
--- NOTE | 2016-09-04 16:05 | NUR ---
Significant Event:PT. UP TO COMMODE WITH STANDBY ASSIST. C/O BILATERAL LEG PAIN AND UNNA BOOTS ON BOTH LEGS.AC AND HS BLOOD SUGARS. IVC FILTER PLACED YESTERDAY WITH RIGHT GROIN INSERTION SITE SOFT AND NO BRUISING NOTED. HAD COLONOSCOPY THIS AFTERNOON AND FOUND SOME INFLAMMATION BUT NO BIOPSY SITE. INR 1.6 AFTER 2 FFP AND VIT K IV GIVEN BEFORE SCOPE.HAS POSITIVE FACTOR 5 LEIDEN. IV RESTARTED IN RIGHT INNER FOREARM. HAD 8 WATERY STOOLS AFTER COLON PREP TODAY. Follow up:
[2016-09-04 16:33] LABS: HEMATOCRIT 35.5 % (37.0-53.0); HEMOGLOBIN 10.8 g/dL (12.0-17.0)
[2016-09-05 00:41] LABS: HEMATOCRIT 33.1 % (37.0-53.0); HEMOGLOBIN 10.1 g/dL (12.0-17.0)
[2016-09-05 05:37] LABS: BASOPHIL % 0.6 %; EOSINOPHIL # 0.1 K/uL (0.0-0.5); EOSINOPHIL % 3.6 %; HEMOGLOBIN 10.2 g/dL (12.0-17.0); IMMATURE GRANULOCYTE % 0.3 %; LYMPHOCYTE # 1.2 K/uL (0.8-4.0); LYMPHOCYTE % 36.1 %; MCH 26.8 pg (27.0-34.0); MCHC 30.9 gm/dL (32.0-36.5); MCV 86.6 fl (83.0-98.0); MONOCYTE # 0.3 K/uL (0.0-1.0); MONOCYTE % 8.5 %; MPV 11.4 fl (9.4-12.4); NEUTROPHIL # (ANC) 1.7 K/uL (1.4-9.0); NEUTROPHIL % 50.9 %; NRBC % 0 /100WBC (0-0.00); PLATELET COUNT 107 K/uL (150-450); RBC 3.81 M/uL (4.00-6.00); RDW-CV 15.4 % (11.9-14.6); WBC 3.3 K/uL (4.0-11.0)
--- NOTE | 2016-09-05 05:46 | NUR ---
Significant Event: AAOX3. ADA DIET, ACHS ACCUCHECK WITH MOD SS. SBA WITH FWW. BS AT 2100= 211, 4U NOVOLOG ADMINISTERED. 2 NORCO GIVEN TWICE, LAST AT 0246. DENIED NAUSEA THROUGHOUT SHIFT. WHILE I WAS IN THE ROOM PT WAS HAVING A PHONE CONVERSATION WITH DAUGHTER, PT STATED "I JUST WANT TO GET IN MY CAR AND DRIVE AWAY." DAUGHTER GOT CONCERNED AND CALLED THE NURSES STATION STATING PT SAID HE WANTED TO GET IN HIS CAR AND DRIVE OFF A EDITH. WHEN ASKED IF HE HAD THOUGHTS OF SELF HARM HE DENIED IT. Follow up: PAIN,
[2016-09-05 05:56] LABS: ALBUMIN 2.8 gm/dL (3.5-5.0); ALK PHOS 90 IU/L (33-138); ALT 42 IU/L (12-78); ANION GAP 10.9 (10.0-19.0); AST 38 IU/L (10-40); BLOOD UREA NITROGEN 11 mg/dL (6-24); CALCIUM 8.2 mg/dL (8.5-10.5); CHLORIDE 109 mMol/L (96-110); CO2 25 mMol/L (22-32); CREATININE 0.7 mg/dL (0.6-1.3); ESTIMATED GFR (MDRD EQUATION) > 60; MAGNESIUM 2.2 mg/dL (1.3-2.6); POTASSIUM 3.9 mMol/L (3.7-5.1); SODIUM 141 mMol/L (135-145); TOTAL BILIRUBIN 0.6 mg/dL (0.0-1.5); TOTAL PROTEIN 7.1 g/dL (6.0-8.4)
[2016-09-05 07:55] LABS: HEMATOCRIT 34.1 % (37.0-53.0); HEMOGLOBIN 10.6 g/dL (12.0-17.0)
--- NOTE | 2016-09-05 15:57 | NUR ---
Significant Event: PT A/O. VSS ON RA, AFEBRILE. PT REMOVED DANN BOOTS LAST HS AND HAS REFUSED TO LET STAFF REPLACE. SHOWERED THIS AM, HAS BEEN UP IN CHAIR MOST OF SHIFT. AMBULATES WITH MINIMAL ASSIST, WALKER AND GAITBELT. R FA IV, GOOD BLOOD RETURN. HEPARIN GTT STARTED- FIRST PTTHP WILL BE AT 1930, ORDERED IN THE COMPUTER. PRN NORCO X2 AT 0730 & 1346. AC HS ACCUCHECKS, MODERATE SSI PLUS INSULIN CM. Follow up: HEPARIN GTT, CONTINUE TO MONITOR
[2016-09-05 16:13] LABS: HEMATOCRIT 34.7 % (37.0-53.0); HEMOGLOBIN 10.4 g/dL (12.0-17.0)
[2016-09-06 00:25] LABS: HEMATOCRIT 33.7 % (37.0-53.0); HEMOGLOBIN 10.4 g/dL (12.0-17.0)
[2016-09-06 01:54] LABS: BASOPHIL % 0.5 %; EOSINOPHIL # 0.2 K/uL (0.0-0.5); EOSINOPHIL % 4.1 %; HEMATOCRIT 33.5 % (37.0-53.0); HEMOGLOBIN 10.1 g/dL (12.0-17.0); IMMATURE GRANULOCYTE % 0.2 %; LYMPHOCYTE # 1.8 K/uL (0.8-4.0); LYMPHOCYTE % 43.1 %; MCH 26.3 pg (27.0-34.0); MCHC 30.1 gm/dL (32.0-36.5); MCV 87.2 fl (83.0-98.0); MONOCYTE # 0.3 K/uL (0.0-1.0); MONOCYTE % 8.2 %; MPV 11.2 fl (9.4-12.4); NEUTROPHIL # (ANC) 1.8 K/uL (1.4-9.0); NEUTROPHIL % 43.9 %; NRBC % 0 /100WBC (0-0.00); PLATELET COUNT 109 K/uL (150-450); RBC 3.84 M/uL (4.00-6.00); RDW-CV 15.3 % (11.9-14.6); WBC 4.2 K/uL (4.0-11.0)
[2016-09-06 03:20] LABS: INR - (THERAPEUTIC) 1.1 (0.9-1.1)
--- NOTE | 2016-09-06 04:16 | NUR ---
Significant Event: Pt is alert and oriented. VSS on RA. IV to the R)FA. Heparin drip, next PTTHP is at 0900. Pt refused to have rebeca boots on last night, stating that he would wear them in the morning. ACHS accuchecks. [place] last given at 2257. Ambulates standby assist/gaitbelt. Follow Up: Continue to monitor.
[2016-09-06 08:44] LABS: HEMATOCRIT 33.7 % (37.0-53.0); HEMOGLOBIN 10.5 g/dL (12.0-17.0)
--- NOTE | 2016-09-06 16:05 | NUR ---
Significant Event: Pt up in room and bathroom and chair. c/o pain legs and rt groin. 2 norco given at 1129. c/o nausea this am and zofran given @ 0720 has denies further nausea. Heparin IV, no changes made to dose at 0900, next PTT/HP @ 2100. Follow up:
[2016-09-06 16:38] LABS: HEMATOCRIT 34.1 % (37.0-53.0); HEMOGLOBIN 10.4 g/dL (12.0-17.0)
--- NOTE | 2016-09-07 04:54 | NUR ---
Significant Event: Pt alert and oriented. VSS on RA. IV to the L)fa, heparin drip running. Next PTTHP at 0600. Pt refused to have DANN boots on this weekend. ACHS accuchecks. Ambulates 1 assist/gaitbelt/walker. Zap given x2 last at 0330. Tolerating a regular diet. Follow Up: Continue to monitor.
[2016-09-07 06:12] LABS: BASOPHIL % 0.8 %; EOSINOPHIL # 0.2 K/uL (0.0-0.5); EOSINOPHIL % 4.5 %; HEMATOCRIT 34.3 % (37.0-53.0); HEMOGLOBIN 10.4 g/dL (12.0-17.0); IMMATURE GRANULOCYTE % 0.3 %; LYMPHOCYTE # 1.8 K/uL (0.8-4.0); LYMPHOCYTE % 44.3 %; MCH 26.4 pg (27.0-34.0); MCHC 30.3 gm/dL (32.0-36.5); MCV 87.1 fl (83.0-98.0); MONOCYTE # 0.3 K/uL (0.0-1.0); MONOCYTE % 7.5 %; MPV 10.9 fl (9.4-12.4); NEUTROPHIL # (ANC) 1.7 K/uL (1.4-9.0); NEUTROPHIL % 42.6 %; NRBC % 0 /100WBC (0-0.00); PLATELET COUNT 121 K/uL (150-450); RBC 3.94 M/uL (4.00-6.00)
[2016-09-07 06:25] LABS: INR - (THERAPEUTIC) 1.1 (0.9-1.1)
--- NOTE | 2016-09-07 10:15 | NUR ---
Followed up with patient since been awhile since we talked. He thinks he might get to go home tomorrow late or Wednesday. Besides a walker script could not think of any thing he might need.
--- NOTE | 2016-09-07 19:07 | NUR ---
Significant Event:Is A/O.Still has heparing drip.Still some Rt.inner knee pain & Rt.groin pain where they went in & put filter in.Has gauze/tegaderm over which is D/I.Voiding ok & had stool today.Up with walker & standby assist.Had [place] last at 1415. Follow up:
--- NOTE | 2016-09-08 04:06 | NUR ---
Significant Event: Dressing to R) groin is clean, dry and intact. CSM WNL. On room air. On a Heparin drip. Next PTTHP is at 0730. Dressing to L) lower leg. Patient stated that he bumped his leg on the bedside table. Voids without difficulty. Accu check. [place] last at 0002. Morphine at 2120. Follow up:
[2016-09-08 07:32] LABS: BASOPHIL % 0.6 %; EOSINOPHIL # 0.2 K/uL (0.0-0.5); EOSINOPHIL % 4.5 %; HEMATOCRIT 34.7 % (37.0-53.0); HEMOGLOBIN 10.6 g/dL (12.0-17.0); IMMATURE GRANULOCYTE % 0.3 %; LYMPHOCYTE # 1.6 K/uL (0.8-4.0); LYMPHOCYTE % 44.5 %; MCH 26.7 pg (27.0-34.0); MCHC 30.5 gm/dL (32.0-36.5); MCV 87.4 fl (83.0-98.0); MONOCYTE # 0.3 K/uL (0.0-1.0); MONOCYTE % 7.6 %; MPV 10.8 fl (9.4-12.4); NEUTROPHIL # (ANC) 1.5 K/uL (1.4-9.0); NEUTROPHIL % 42.5 %; NRBC % 0 /100WBC (0-0.00); PLATELET COUNT 120 K/uL (150-450); RBC 3.97 M/uL (4.00-6.00); RDW-CV 15.2 % (11.9-14.6); WBC 3.6 K/uL (4.0-11.0)
[2016-09-08 08:05] LABS: INR - (THERAPEUTIC) 1.4 (0.9-1.1); PROTIME 15.4 SECONDS (9.6-11.1)
--- NOTE | 2016-09-08 13:29 | NUR ---
09/08/16: AT 1200 OFFERED TO AMBULATE PATIENT IN HALLS, PT REFUSED AND WANTED TO TAKE A NAP. WOULD TRY TO AMBULATE THE HALLS LATER THIS AFTERNOON.
--- NOTE | 2016-09-08 17:12 | NUR ---
Significant Event: patient alert and oriented x3. ambulated in [place], up to bathroom and up to chair with sba, use of gait belt. norco 2 tabs given x2 last at 1603 for c/o r) leg pain and headache, rated pain 6-2 on pain scale. gauze/tegaderm dressing to r) groin c/d/i. accuchecks 135, 156, 190. 0730 PTTHP 94, 1330 PTTHP 81, heparin infusing at 2420 units/hour. INR 1.4 this am. bilateral compression socks in place. Next PTTHP at 1999. gauze dressing to l) lower leg dry/intact. Follow up:
[2016-09-09 02:44] LABS: INR - (THERAPEUTIC) 1.6 (0.9-1.1); PROTIME 17.5 SECONDS (9.6-11.1)
--- NOTE | 2016-09-09 05:09 | NUR ---
Significant Event: Patient is alert and oriented x 3. VSS on room air. Up with stand by assist. Dressing to right groin is intact. Heparin gtt running at 2320 units/hr in left forearm IV. Next PTTHP is at 0845. ACHS accuchecks. Receives [place] for pain, last at 0111. Patient is pleasant and cooperative with cares. Follow up: Possible dismissal to home today
--- NOTE | 2016-09-09 10:15 | NUR ---
Spoke with Uche Antoine, thinking patient will go home today with Lovenox. No identified needs from Care Management.
[2016-09-09] MEDS ORDERED: ANUSOL-HC CREAM30 GM R (13:07)
[2016-09-09] MEDS ORDERED: LEVEMIR FL100 UNIT/1 SUB-Q (13:08)
[2016-09-09] MEDS ORDERED: NOVOLOG FL100 UNIT/1 SUB-Q (13:08)
[2016-09-09] MEDS ORDERED: COUMADIN6 MG PO (13:09)
[2016-09-09] MEDS ORDERED: LOVENOX60 MG/0.6 SUB-Q (13:11)
[2016-09-09] MEDS ORDERED: NORCO 5-325 TA1 EACH PO (13:12)
[2016-09-09] MEDS ORDERED: GLUCOSE4 GM PO (13:15)
[2016-09-09] MEDS ORDERED: ASPIRIN LO-DOSE81 MG PO (13:16)
[2016-09-09] MEDS ORDERED: GLUCAGON 1 MG PE1 MG SUB-Q (13:16)
--- NOTE | 2016-09-09 15:16 | NUR ---
DISCHARGE: Pt. was explained discharge instructions, educated on DVT, lovenox injection, coumadin administration, treating low blood sugars, and new medications. Verbalized understanding, no questions or concerns. Left with all belongings and prescriptions. IV removed by primary RN. Taken to front door by aide and driven home by .
== END 2016-09-09 14:30 | disposition disaster alternative care site (69) | DRG 253 ==
LOC: GMED 17:55 → GMSU 20:18
PROVIDERS: Emergency Medicine; Family Medicine; Internal Medicine; Internal Medicine Interventional Cardiology; Nurse Practitioner Family; ADMIT Hospitalist
PROC: 30233K1 Transfusion of Nonautologous Frozen Plasma into Peripheral Vein, Percutaneous Approach (ICD-10-PCS; principal; 2016-09-03)
PROC: 06H03DZ Insertion of Intraluminal Device into Inferior Vena Cava, Percutaneous Approach (ICD-10-PCS; 2016-09-03)
PROC: 30233K1 Transfusion of Nonautologous Frozen Plasma into Peripheral Vein, Percutaneous Approach (ICD-10-PCS; 2016-09-04)
PROC: 0DBK8ZX Excision of Ascending Colon, Via Natural or Artificial Opening Endoscopic, Diagnostic (ICD-10-PCS; 2016-09-04)
DX: I82.441 Acute embolism and thrombosis of right tibial vein (principal); D61.818 Other pancytopenia; E11.40 Type 2 diabetes mellitus with diabetic neuropathy, unspecified; D68.2 Hereditary deficiency of other clotting factors; E11.65 Type 2 diabetes mellitus with hyperglycemia; I82.491 Acute embolism and thrombosis of other specified deep vein of right lower extremity; D69.6 Thrombocytopenia, unspecified; Z68.43 Body mass index [BMI] 50.0-59.9, adult; K92.1 Melena; Z86.718 Personal history of other venous thrombosis and embolism; Z79.01 Long term (current) use of anticoagulants; Z79.4 Long term (current) use of insulin; E66.01 Morbid (severe) obesity due to excess calories; I10 Essential (primary) hypertension; I25.10 Atherosclerotic heart disease of native coronary artery without angina pectoris; Z87.891 Personal history of nicotine dependence; I87.2 Venous insufficiency (chronic) (peripheral); I82.511 Chronic embolism and thrombosis of right femoral vein; Z79.84 Long term (current) use of oral hypoglycemic drugs; Z79.02 Long term (current) use of antithrombotics/antiplatelets; K76.0 Fatty (change of) liver, not elsewhere classified; I82.532 Chronic embolism and thrombosis of left popliteal vein; E11.51 Type 2 diabetes mellitus with diabetic peripheral angiopathy without gangrene
CPT/HCPCS: A9270; C1880; J1644; J1650; J2250; J2270; J2405; J3010; J7030; J7050; J7060; P9017

== ENCOUNTER 2016-10-11 17:35 | Inpatient (IN) | payer MEDICAID ==
[~2016-10-11] VITALS: Ht 185.4 cm; Wt 183.3 kg
--- NOTE | ~2016-10-11 | ER ---
PATIENT'S NAME: HARESH PRINCE [facility] AGE: 50 Y [address] ROOM: [place] [address] LOCATION: GPCU ADMIT DATE: 10/11/2016 ER/Outpatient Report DISCHARGE DATE: FAMILY PHYSICIAN: Satya Gonzalez PA-C ATTENDING PHYSICIAN: RAJANI BURT Time of Arrival: 1735 hours. Time of Evaluation: 1806 hours at arrival of my shift. CHIEF COMPLAINT: Chest pain, blood in the stool. HISTORY OF PRESENT ILLNESS: The patient is a 50-year-old male, who presents to the emergency department today with chief complaint of chest pain and blood in the stool. He reports this started today with the chest pain. Blood in the stool also started today. He reports it is bright red blood per rectum. He reports he has had multiple bowel movements with this. He denies any fevers. He does report some shortness of breath. No cough. At this time, it is 7/10, sharp pain, left side, no radiation, no ripping or tearing sensation, no radiation to his back. PAST MEDICAL HISTORY: Cellulitis, hep C, insulin-dependent diabetes, NE with stent, morbid obesity, DVT. PAST SURGICAL HISTORY: Chasity filter, heart catheterization, umbilical hernia repair, kidney stone removal. SOCIAL HISTORY: The patient stopped smoking 11 years ago. Denies any alcohol. Denies any illicit drug use. ALLERGIES: TO PENICILLIN. MEDICATIONS: Please see list. PRIMARY CARE DOCTOR: SENAIT Gonzalez in [place]. REVIEW OF SYSTEMS: All systems are reviewed by myself and are negative with the exception of PATIENT'S NAME: HARESH PRINCE [facility] AGE: 50 Y [address] ROOM: [place] [address] LOCATION: GPCU ADMIT DATE: 10/11/2016 ER/Outpatient Report DISCHARGE DATE: FAMILY PHYSICIAN: Satya Gonzalez PA-C ATTENDING PHYSICIAN: RAJANI BURT those discussed in the HPI and past medical history. PHYSICAL EXAMINATION: VITAL SIGNS: Weight 181.6 kg, blood pressure 166/87, pulse 122, respiratory rate 18, temperature 97.9, oxygen saturation 97% on room air. GENERAL: The patient is a 50-year-old male, who appears stated age, morbidly obese, in mild acute distress. HEENT: Normocephalic, atraumatic. Pupils are equal, round, and reactive to light. Conjunctivae are normal. NECK: Supple. There is no nuchal rigidity. CARDIOVASCULAR: Tachycardic. No murmurs, rubs, or gallops. LUNGS: Clear to auscultation bilaterally. No wheezes, rales, or rhonchi. ABDOMEN: Soft, nontender, and nondistended. No rebound, rigidity, or guarding. MUSCULOSKELETAL: The patient moves all 4 extremities. SKIN: Warm and dry. The patient does have some mild erythema in the left lower extremity. LABORATORY DATA AND X-RAYS: Labs and x-rays are obtained. CT scan of the chest was obtained. It does show no pulmonary embolism. There is an ascending aortic aneurysm, 4.2 cm in diameter, at the level of the main pulmonary artery, which is not significantly changed. Pseudocyst in the upper abdomen. CBC is unremarkable except for hemoglobin 11.7, PTT is 39, PT is 32.3. INR is 3.04. Lipase is normal. Pro-BNP is normal. EKG is obtained, shows sinus tachycardia with a rate of 108, normal axis, normal interval, no ST elevation, ST depression, T-wave inversions. CMP is unremarkable except for glucose 224, alkaline phosphatase normal, AST is 41, ALT is normal. Magnesium is normal. Cardiac enzymes are normal. Occult blood is positive. Stool sample shows rare wbc's and H. pylori is positive. Chest x-ray shows no significant change. IMPRESSION: 1. Gastrointestinal bleeding. 2. Chest pain, unclear etiology. 3. Helicobacter pylori positive. 4. Ascending aortic aneurysm, 4.2 cm, no significant change. 5. Poorly-controlled diabetes mellitus. 6. Initial visit. EMERGENCY DEPARTMENT COURSE: The patient was brought back to the examination room. Seen and evaluated by myself. IV is established. Laboratory analysis and imaging are obtained as described above. The patient was given a liter of normal saline IV. He was PATIENT'S NAME: HARESH PRINCE [facility] AGE: 50 Y [address] ROOM: [address] [place], [place] [address] LOCATION: GPCU ADMIT DATE: 10/11/2016 ER/Outpatient Report DISCHARGE DATE: FAMILY PHYSICIAN: Gonzalez, Satya PA-C ATTENDING PHYSICIAN: RAJANI BURT given 0.4 mg of nitro with some very mild improvement in the patient's symptoms. The patient was given 40 mg of Protonix IV and then started on Biaxin and Flagyl orally. The patient was given 50 mcg of fentanyl as well as 4 mg of Zofran, which did improve the patient's symptoms. I did discuss the case with Dr. Burt, the Hospitalist Service, and he does agree to accept the patient for further evaluation, treatment, and management. The patient was given 2 units of FFP as well as 2.5 mg of vitamin K. I did discuss the results with the patient and the family. Dr. Farias has seen and evaluated the patient down here in the emergency department for the Hospitalist Service. DISPOSITION: The patient is admitted under the care of the Hospitalist Service in stable condition. DO AMY CELAYA/gabriele /[id number] d: 10/12/16102 t: 10/12/16 0157, OUTPATIENT REPORT
--- NOTE | ~2016-10-11 | CON ---
PATIENT'S NAME: HARESH PRINCE [facility] AGE: 50 Y [address] ROOM: [place] [address] LOCATION: GPCU ADMIT DATE: 10/11/2016 Consultation DISCHARGE DATE: FAMILY PHYSICIAN: Satya Gonzalez PA-C ATTENDING PHYSICIAN: RAJANI BURT DATE OF CONSULTATION: 10/12/2016 REFERRING PHYSICIAN: MAXIME HAZEL MD REASON FOR CONSULTATION: Bright red blood per rectum and noncardiac chest pain. HISTORY OF PRESENT ILLNESS: This is a very pleasant 50-year-old male who has a past medical history for DVT as well as factor V leiden, currently on Coumadin. The patient was recently admitted in 08/2016 with noted DVT. At that time, he was noted to have bright red blood per rectum as he underwent a colonoscopy. This did show inflammation seen at the ascending distal to the cecum where biopsy showed "focal active colitis," but nonspecific. The patient has been on Coumadin since dismissal. He also underwent IVC filter placement. The patient states that yesterday, he began having loose diarrhea that was bright red in color as well as "very dark clots." The patient's hemoglobin on admission was 11.7 with a recheck today of 10.0. The patient complains of mid epigastric discomfort with palpation and generalized abdominal tenderness. He does complain of some chest pain though cardiac workup has been negative at this time. The patient denies any NSAID use. He has been given 3 units of fresh frozen plasma as well as vitamin K. He also has a history of hepatitis C from what he believes was IV drug use. He stated while in [facility] they said "it went away on its own" as he denies any treatment for this. The patient currently denies any chest pain, chest pressure, shortness of breath, fever, chills, night sweats, or weight loss. Most recent INR recheck was 1.6. PAST MEDICAL HISTORY: 1. Coronary artery disease. 2. Insulin dependent diabetes. 3. Morbid obesity. 4. Essential hypertension. 5. History of DVT. 6. Peripheral arterial disease. SURGICAL HISTORY: 1. Colonoscopy in August of 2016, no history of upper endoscopy. 2. IVC filter placed. 3. Abdominal hernia repair. 4. Laser surgery for kidney stones. PATIENT'S NAME: HARESH PRINCE [facility] AGE: 50 Y [address] ROOM: [place] [address] LOCATION: GPCU ADMIT DATE: 10/11/2016 Consultation DISCHARGE DATE: FAMILY PHYSICIAN: Satya Gonzalez PA-C ATTENDING PHYSICIAN: RAJANI BURT 5. Skin graft to the leg secondary to ulcer and blood clot. 6. [place] filter. SOCIAL HISTORY: The patient is former IV drug user with hepatitis C stated. He was a heavy smoker for approximately 3 years though quit approximately 10 years ago. Longstanding distant history of alcohol abuse. FAMILY HISTORY: The patient's father had coronary artery disease. He denies any gastrointestinal diseases or cancers. ALLERGIES: PENICILLIN. CURRENT MEDICATIONS: Please refer to the medication administration record. REVIEW OF SYSTEMS: A 10-point review of systems was completed. All were negative except for those identified in the history of present illness. PHYSICAL EXAMINATION: GENERAL: Pleasant 50-year-old male lying in bed, who appears to be in no acute distress. VITAL SIGNS: Temperature 98.9, pulse is 74, respirations of 18, blood pressure 101/52, and oxygen saturations 95% on room air. SKIN: [place], warm, and dry. No jaundice. HEENT: Head is normocephalic and atraumatic. Pupils are equal, round, and reactive to light. Sclerae are clear. Nonicteric. Oral mucosa is pink and moist. No thyromegaly. NECK: Soft and supple. CARDIOVASCULAR: Regular normal S1 and S2. RESPIRATORY: Respirations even and unlabored. LUNGS: Clear to auscultation. ABDOMEN: Soft, round, obese, mildly tender throughout and increased pain noted to his mid epigastric area with palpation. Bowel sounds positive x4 quadrants. MUSCULOSKELETAL: No muscle weakness or atrophy. EXTREMITIES: No clubbing, cyanosis, or edema. NEUROLOGICAL: Grossly nonfocal. LABS AND DIAGNOSTICS: Cardiac enzymes have all been within normal limits. White blood cell count of 2.9, hemoglobin of 10.0 down from 11.7, hematocrit of 32.8, MCV is 86.8, and PATIENT'S NAME: HARESH PRINCE [facility] AGE: 50 Y [address] ROOM: [place] [address] LOCATION: GPCU ADMIT DATE: 10/11/2016 Consultation DISCHARGE DATE: FAMILY PHYSICIAN: Satya Gonzalez PA-C ATTENDING PHYSICIAN: RAJANI BURT platelets of 106. Chemistry panel includes a glucose of 224, BUN of 11, creatinine 0.9, sodium 139, potassium of 4.1, chloride 107, CO2 of 23. Albumin of 3.3, AST of 41 ALT of 52, alkaline phosphatase of 94, total bilirubin 0.5, magnesium 1.8. Protime 17.4, INR is 1.65. Lipase on admission was 87. CT of the chest for PE protocol showed no pulmonary embolism. Diameter of ascending thoracic aorta measures up to 4.2 cm. Changes of cirrhosis of the liver with associated splenomegaly, clear lungs with no acute infiltrates. ASSESSMENT AND PLAN: Again, this is a pleasant 50-year-old male, who was recently admitted with suspected gastrointestinal bleed in noncardiac chest pain. 1. Gastrointestinal bleed. The patient currently is on PPI b.i.d. IV as this should be continued until status post upper endoscopy. 2. Bright red blood per rectum. The patient's records review as he recently underwent a colonoscopy on 09/04/2016 showing some inflammation and colitis though nonspecific. There is no need to repeat this colonoscopy at this time. 3. Mid-epigastric discomfort and noncardiac chest pain. At this time, we will go forth with an upper endoscopy for further evaluation of the pain as well as rule out any upper gastrointestinal bleed. He has been given 3 units of FFP as well as vitamin K as further recommendations to be given status post upper endoscopy. 4. Hepatitis C. the patient does need outpatient workup for a possible treatment. It is unclear what his viral load as well as genotyping is. He does need a complete workup regarding treatment options. 5. Liver cirrhosis. Liver cirrhosis was seen on the CAT scan with PE protocol. Again this does need continued workup, likely related to his hepatitis C though further etiology should be ruled out. This will be done complete as an outpatient for further evaluation. Thank you for this consult and allowing us to participate in the care of this patient. HEBER DUNCAN, ERGONOMICS CONSULTANT FOR MD OBED MELCHOR/gabriele /[id number] d: 10/12/16 1139 t: 10/15/16 1707, CONSULTATION REPORT
--- NOTE | ~2016-10-11 | HP ---
PATIENT'S NAME: HARESH PRINCE [facility] AGE: 50 Y [address] ROOM: [place] [address] LOCATION: GPCU ADMIT DATE: 10/11/2016 History & Physical DISCHARGE DATE: FAMILY PHYSICIAN: Satya Gonzalez PA-C ATTENDING PHYSICIAN: RAJANI BURT DATE OF SERVICE: CHIEF COMPLAINT: Chest pain, blood right red blood per rectum. HISTORY OF PRESENT ILLNESS: The patient is a 50-year-old male with past medical history most significant for recently diagnosed DVT as well as Factor V Leiden, on Coumadin. The patient presented to the ER today with approximately 2 days worth of intermittent sharp midsternal, radiating to the right side, chest pain. The patient has not initially pursued care for this, but eventually his daughter has convinced him to come in. He reports that the chest pain is worse with deep inspiration and described as sharp. He also developed bright red blood per rectum which he describes as red, but not with any significant clots or melena. Of note, the patient had a similar episode during a recent hospitalization here at [facility] where he had a colonoscopy which proved to be unremarkable aside from hemorrhoids. At that point, he also had an IVC filter placed because of bleeding in the setting of anticoagulation. He also endorses some dyspnea associated with his symptoms. He also had some diaphoresis but no syncope and he does admit to palpitations. No nausea or vomiting. REVIEW OF SYSTEMS: All 10 systems have been reviewed and are negative aside from pertinent positives mentioned above. PAST MEDICAL HISTORY: Coronary artery disease with an intervention over 10 years ago, insulin- dependent diabetes, morbid obesity due to excess calories, essential hypertension. He carries a past medical history of peripheral arterial disease though duplex imaging of his right leg did not reveal any PVD. FAMILY HISTORY: Significant for coronary artery disease in his father. PATIENT'S NAME: HARESH PRINCE [facility] AGE: 50 Y [address] ROOM: [place] [address] LOCATION: GPCU ADMIT DATE: 10/11/2016 History & Physical DISCHARGE DATE: FAMILY PHYSICIAN: Satya Gonzalez PA-C ATTENDING PHYSICIAN: RAJANI BURT SOCIAL HISTORY: The patient was a heavy smoker for approximately 3 years approximating his history over 90 pack years, but quit 10 years ago. Apparently, he also had a long distant standing history of alcohol abuse though at this point, he denies any ongoing toxic habits. CURRENT MEDICATIONS: As per discharge summary: 1. Furosemide 20 b.i.d. 2. Gabapentin 100 t.i.d. 3. Hydrochlorothiazide 25 daily. 4. Insulin sliding scale. 5. Levemir 33 b.i.d. 6. NovoLog 15 subcutaneous 3 times daily with meals. 7. metoprolol 50 b.i.d. 8. Lisinopril 10 mg daily. 9. KCl. 10. Coumadin. 11. Draper. 12. Glucophage. 13. Tylenol. 14. Nitrostat. 15. Aspirin. PHYSICAL EXAMINATION: VITAL SIGNS: Initially, his heart rate was in 120s, but at this point, his heart rate is 89; blood pressure 120s/70s; saturating 96% on room air; afebrile; and respirations are 14. GENERAL: Morbidly obese, middle-aged male, in mild distress due to chest pain as well as some anxiety. EYES: Pupils are equal and reactive to lightheadedness. LYMPHATIC: No cervical lymphadenopathy. ENDOCRINE: No thyromegaly. LUNGS: Diminished breath sounds at bases, but no crackles or rales. CARDIAC: Regular rate and rhythm without appreciable murmurs, gallops, or rubs. There is bilateral nonpitting lower extremity edema and JVD cannot be assessed. GI: Abdomen is soft, nontender, and nondistended. : No costovertebral angle tenderness. VASCULAR: Preserved pulses bilaterally. SKIN: Warm and dry. PSYCHIATRIC: Appropriate mood, cognition, and affect. MUSCULOSKELETAL: Unremarkable. PATIENT'S NAME: HARESH PRINCE [facility] AGE: 50 Y [address] ROOM: [place] [address] LOCATION: GPCU ADMIT DATE: 10/11/2016 History & Physical DISCHARGE DATE: FAMILY PHYSICIAN: Satya Gonzalez PA-C ATTENDING PHYSICIAN: RAJANI BURT DIAGNOSTIC DATA: Studies performed in the ER significant for unremarkable basic metabolic profile and 2 sets of negative cardiac enzymes. INR of 3.0. Hemoglobin of 9.7, which is actually above his discharge hemoglobin. EKG reveals sinus tachycardia, 108 beats per minute. Chest x-ray is unremarkable. ASSESSMENT AND PLAN: This is a 50-year-old male who will be admitted with: 1. Chest pain. I was able to reproduce some of this chest pain, although diffusely around his chest. Given factor V Leiden as well as new onset chest pain and tachycardia on admission, we are obliged to rule out a PE which would signify a failure of anticoagulation as well as an IVC filter. 2. Lower gastrointestinal bleed. At this point, his hemoglobin is stable and we will follow his hemoglobin throughout the night. We will request a Gastroenterology consultation in the morning. 3. Iatrogenic coagulopathy with Coumadin. The patient has received fresh frozen plasma in the ER, and we will trend his INR. If his hemoglobin stays stable and he does have a PE, we will consider restarting anticoagulation with Lovenox. 4. Insulin-dependent diabetes. We will continue him on a sliding scale. 5. Morbid obesity due to excess calories noted. 6. Hypertension. We will continue his antihypertensive regimen. 7. Gastrointestinal bleed. We will put him on IV Protonix though at this time he is hemodynamically stable. Additional management will depend on clinical course. Time dedicated to this patient's encounter is 35 minutes. MD NEENA BARON/gabriele /[id number] D: 015 T: 456 HISTORY & PHYSICAL
--- NOTE | ~2016-10-11 | DS ---
PATIENT'S NAME: HARESH PRINCE [facility] AGE: 50 Y [address] ROOM: [address] [place] [address] LOCATION: GPCU ADMIT DATE: 10/11/2016 Discharge Summary DISCHARGE DATE: 10/13/2016 FAMILY PHYSICIAN: Satya Gonzalez PA-C ATTENDING PHYSICIAN: Geovany Sparks PRINCIPAL DIAGNOSES: 1. Hematochezia. 2. Acute blood loss anemia. 3. Morbid obesity. 4. Insulin-dependent diabetes mellitus. 5. Factor V Leiden mutation. 6. 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 7. Peripheral arterial disease. 8. Essential hypertension. 9. History of coronary artery disease. HOSPITAL COURSE: A 50-year-old gentleman with a past medical history of morbid obesity, insulin-dependent diabetes mellitus, and factor V Leiden mutation leading to multiple DVTs and pulmonary embolism, on blender helper anticoagulation as well as inferior vena cava filter, who presented to the Emergency Department with chief complaint of bright red blood per rectum. Of note, he recently was admitted with similar complaints to the hospital not so long ago. At that time, he underwent a colonoscopy which did not reveal any source of bleeding. He was again admitted to the hospital and he was started on IV hydration as well as Protonix. Gastroenterology consultation was made and he underwent upper endoscopy which revealed mild esophagitis as well as gastroenteritis, but no source of bleeding. He did have history of hemorrhoids chronically and Gastroenterology felt that this is secondary to that. He was resumed on his Coumadin before discharge. He does have IVC filter, so we are not going to bridge it at this point. He will follow up with PCP in 3 days. We will schedule an appointment with the [facility] outpatient for the evaluation of the hemorrhage. During the course of the hospitalization, a CAT scan of the chest was done with contrast to rule out any acute pulmonary embolism, but there was none. The CAT scan did show fatty liver infiltration as well as cirrhosis. He will have a followup with Gastroenterology in 4 week for evaluation of that. MEDICATIONS: On discharge include: 1. Gabapentin 100 mg p.o. 3 times daily. 2. Insulin aspart sliding scale with meals. 3. Insulin 33 units b.i.d. subcu twice daily. 4. Glucagon. 5. Metoprolol tartrate 50 mg p.o. twice daily. PATIENT'S NAME: HARESH PRINCE [facility] AGE: 50 Y [address] ROOM: [address] [place] [address] LOCATION: [facility] ADMIT DATE: 10/11/2016 Discharge Summary DISCHARGE DATE: 10/13/2016 FAMILY PHYSICIAN: Satya Gonzalez PA-C ATTENDING PHYSICIAN: Geovany Sparks 6. Lisinopril 10 mg p.o. everyday. 7. Potassium chloride 20 mEq p.o. everyday. 8. Tramadol 50 mg p.o. 3 times daily p.r.n. 9. Metformin 1 g p.o. twice daily. 10. Furosemide 20 mg p.o. daily. 11. Acetaminophen 325-365 mg p.o. every 6 hours p.r.n. 12. Nitroglycerin 0.4 mg sublingual as needed p.r.n. for pain. 13. Hydrochlorothiazide 25 p.o. everyday. 14. Hydrocortisone Anusol-HC cream 1 application twice daily p.r.n. 15. Warfarin 7 mg p.o. 4 days per week. 16. Aspirin 81 mg p.o. every day. 17. Coumadin 7.5 mg p.o. 3 days a week. This medication was stopped during the course of the hospitalization. 18. Diclofenac sodium 75 mg p.o. twice daily. 19. Doxycycline 100 mg p.o. twice daily. 20. Plavix 75 mg p.o. every day. 21. Pentoxifylline 400 mg p.o. twice daily. 22. Magnesium oxide 400 mg p.o. twice daily. ACTIVITY: As tolerated. DIET: Low-sodium, diabetic diet. FOLLOWUP APPOINTMENT: As per hospital course. I spent 35 minutes in discharge planning and coordinating care for this patient. MD JESSICA SRINIVASAN/gabriele /[id number] d: 10/14/16 0117 t: 10/16/16 1503, DISCHARGE SUMMARY
[~2016-10-11 17:35] MED LIST changes: +ANUSOL-HC CREAM30 GM R; +ASPIRIN LO-DOSE81 MG PO; +COUMADIN6 MG PO; +GLUCAGON 1 MG PE1 MG SUB-Q; +GLUCOSE4 GM PO; +HYDROCHLOROTHIA25 MG PO; +LANTUS (IN100 UNIT/M SUB-Q; +LEVEMIR FL100 UNIT/1 SUB-Q; +LOVENOX60 MG/0.6 SUB-Q; +NEURONTIN100 MG PO; +NITROSTAT0.4 MG SL; +NORCO 5-325 TA1 EACH PO; +NOVOLOG FL100 UNIT/1 SUB-Q; +PLAVIX75 MG PO
[2016-10-11 18:20] LABS: BASOPHIL % 0.4 %; EOSINOPHIL # 0.1 K/uL (0.0-0.5); EOSINOPHIL % 2.3 %; HEMATOCRIT 36.9 % (37.0-53.0); HEMOGLOBIN 11.7 g/dL (12.0-17.0); IMMATURE GRANULOCYTE % 0.2 %; LYMPHOCYTE # 1.2 K/uL (0.8-4.0); LYMPHOCYTE % 26.1 %; MCH 26.8 pg (27.0-34.0); MCHC 31.7 gm/dL (32.0-36.5); MCV 84.6 fl (83.0-98.0); MONOCYTE # 0.3 K/uL (0.0-1.0); MONOCYTE % 6.7 %; MPV 10.4 fl (9.4-12.4); NEUTROPHIL # (ANC) 3.1 K/uL (1.4-9.0); NEUTROPHIL % 64.3 %; NRBC % 0 /100WBC (0-0.00); RBC 4.36 M/uL (4.00-6.00); RDW-CV 15.4 % (11.9-14.6); WBC 4.8 K/uL (4.0-11.0)
[2016-10-11 18:21] LABS: PLATELET COUNT 151 K/uL (150-450)
[2016-10-11 18:29] LABS: INR - (THERAPEUTIC) 3.04 (0.92-1.07); PROTIME 32.3 SECONDS (9.8-11.4)
[2016-10-11 18:33] LABS: PTT 39 SECONDS (25-32)
[2016-10-11 18:39] LABS: ALBUMIN 3.3 gm/dL (3.5-5.0); ALK PHOS 94 IU/L (33-138); ALT 52 IU/L (12-78); ANION GAP 13.1 (10.0-19.0); AST 41 IU/L (10-40); BLOOD UREA NITROGEN 11 mg/dL (6-24); CALCIUM 8.5 mg/dL (8.5-10.5); CHLORIDE 107 mMol/L (96-110); CO2 23 mMol/L (22-32); CPK 101 IU/L (35-332); CREATININE 0.9 mg/dL (0.6-1.3); ESTIMATED GFR (MDRD EQUATION) > 60; MAGNESIUM 1.8 mg/dL (1.8-2.6); POTASSIUM 4.1 mMol/L (3.7-5.1); SODIUM 139 mMol/L (135-145); TOTAL BILIRUBIN 0.5 mg/dL (0.0-1.5); TOTAL PROTEIN 7.8 g/dL (6.0-8.4)
[2016-10-11 20:35] LABS: CPK 90 IU/L (35-332)
[2016-10-11] MEDS ORDERED: COUMADIN **IA1 MG PO (22:57)
[2016-10-11 23:42] LABS: BASOPHIL % 0.6 %; EOSINOPHIL # 0.1 K/uL (0.0-0.5); EOSINOPHIL % 2.6 %; HEMOGLOBIN 10.4 g/dL (12.0-17.0); IMMATURE GRANULOCYTE % 0.3 %; LYMPHOCYTE # 1.4 K/uL (0.8-4.0); LYMPHOCYTE % 38.7 %; MCH 26.5 pg (27.0-34.0); MCHC 30.6 gm/dL (32.0-36.5); MCV 86.7 fl (83.0-98.0); MONOCYTE # 0.2 K/uL (0.0-1.0); MONOCYTE % 6.6 %; NEUTROPHIL # (ANC) 1.8 K/uL (1.4-9.0); NEUTROPHIL % 51.2 %; NRBC % 0 /100WBC (0-0.00); RBC 3.92 M/uL (4.00-6.00); RDW-CV 15.6 % (11.9-14.6); WBC 3.5 K/uL (4.0-11.0)
[2016-10-11 23:43] LABS: PLATELET COUNT 120 K/uL (150-450)
[2016-10-11 23:49] LABS: INR - (THERAPEUTIC) 2.12 (0.92-1.07); PROTIME 22.4 SECONDS (9.8-11.4)
[2016-10-12 07:18] LABS: BASOPHIL % 0.7 %; EOSINOPHIL # 0.1 K/uL (0.0-0.5); EOSINOPHIL % 3.5 %; HEMATOCRIT 32.8 % (37.0-53.0); IMMATURE GRANULOCYTE % 0.3 %; LYMPHOCYTE # 1.3 K/uL (0.8-4.0); LYMPHOCYTE % 44.6 %; MCH 26.5 pg (27.0-34.0); MCHC 30.5 gm/dL (32.0-36.5); MCV 86.8 fl (83.0-98.0); MONOCYTE # 0.2 K/uL (0.0-1.0); MONOCYTE % 8.3 %; NEUTROPHIL # (ANC) 1.2 K/uL (1.4-9.0); NEUTROPHIL % 42.6 %; NRBC % 0 /100WBC (0-0.00); PLATELET COUNT 106 K/uL (150-450); RBC 3.78 M/uL (4.00-6.00); RDW-CV 15.7 % (11.9-14.6); WBC 2.9 K/uL (4.0-11.0)
[2016-10-12 07:27] LABS: INR - (THERAPEUTIC) 1.65 (0.92-1.07); PROTIME 17.4 SECONDS (9.8-11.4)
[2016-10-12] MEDS ORDERED: ULTRAM50 MG PO (11:22)
[2016-10-12] MEDS ORDERED: DICLOFENAC SODI75 MG PO (11:24)
[2016-10-12] MEDS ORDERED: DOXYCYCLINE100 MG PO (11:25)
[2016-10-12] MEDS ORDERED: MAG-OX-400(241400 MG PO (11:25)
[2016-10-12] MEDS ORDERED: PLAVIX75 MG PO (11:25)
[2016-10-12] MEDS ORDERED: TRENTAL400 MG PO (11:25)
[2016-10-12 11:28] LABS: ANION GAP 12.2 (10.0-19.0); BLOOD UREA NITROGEN 9 mg/dL (6-24); CALCIUM 7.9 mg/dL (8.5-10.5); CHLORIDE 112 mMol/L (96-110); CO2 22 mMol/L (22-32); CREATININE 0.8 mg/dL (0.6-1.3); ESTIMATED GFR (MDRD EQUATION) > 60; SODIUM 142 mMol/L (135-145)
[2016-10-12 11:29] LABS: POTASSIUM 4.2 mMol/L (3.7-5.1)
[2016-10-12 15:09] LABS: BASOPHIL % 0.3 %; EOSINOPHIL # 0.1 K/uL (0.0-0.5); EOSINOPHIL % 3.9 %; HEMATOCRIT 35.3 % (37.0-53.0); HEMOGLOBIN 10.8 g/dL (12.0-17.0); LYMPHOCYTE # 1.4 K/uL (0.8-4.0); LYMPHOCYTE % 44.3 %; MCH 26.6 pg (27.0-34.0); MCHC 30.6 gm/dL (32.0-36.5); MCV 86.9 fl (83.0-98.0); MONOCYTE # 0.2 K/uL (0.0-1.0); MONOCYTE % 6.9 %; MPV 11.1 fl (9.4-12.4); NEUTROPHIL # (ANC) 1.4 K/uL (1.4-9.0); NEUTROPHIL % 44.6 %; NRBC % 0 /100WBC (0-0.00); PLATELET COUNT 117 K/uL (150-450); RBC 4.06 M/uL (4.00-6.00); RDW-CV 15.7 % (11.9-14.6); WBC 3.1 K/uL (4.0-11.0)
[2016-10-13 05:52] LABS: BASOPHIL % 0.3 %; EOSINOPHIL # 0.1 K/uL (0.0-0.5); EOSINOPHIL % 2.9 %; HEMATOCRIT 33.9 % (37.0-53.0); HEMOGLOBIN 10.3 g/dL (12.0-17.0); IMMATURE GRANULOCYTE % 0.3 %; LYMPHOCYTE # 1.4 K/uL (0.8-4.0); LYMPHOCYTE % 43.8 %; MCH 26.9 pg (27.0-34.0); MCHC 30.4 gm/dL (32.0-36.5); MCV 88.5 fl (83.0-98.0); MONOCYTE # 0.2 K/uL (0.0-1.0); MONOCYTE % 7.8 %; MPV 11.3 fl (9.4-12.4); NEUTROPHIL # (ANC) 1.4 K/uL (1.4-9.0); NEUTROPHIL % 44.9 %; NRBC % 0 /100WBC (0-0.00); PLATELET COUNT 105 K/uL (150-450); RBC 3.83 M/uL (4.00-6.00); RDW-CV 15.6 % (11.9-14.6); WBC 3.1 K/uL (4.0-11.0)
[2016-10-13 06:04] LABS: BLOOD UREA NITROGEN 9 mg/dL (6-24); CALCIUM 7.9 mg/dL (8.5-10.5); CHLORIDE 112 mMol/L (96-110); CO2 24 mMol/L (22-32); CREATININE 0.8 mg/dL (0.6-1.3); ESTIMATED GFR (MDRD EQUATION) > 60; SODIUM 141 mMol/L (135-145)
[2016-10-13] MEDS ORDERED: PROTONIX40 MG PO (13:22)
== END 2016-10-13 16:45 | disposition disaster alternative care site (69) | DRG 378 ==
LOC: GMED 17:35 → GPCU 19:22
PROVIDERS: Emergency Medicine; Internal Medicine; ADMIT Internal Medicine
PROC: 0DJ08ZZ Inspection of Upper Intestinal Tract, Via Natural or Artificial Opening Endoscopic (ICD-10-PCS; principal; 2016-10-12)
DX: K92.2 Gastrointestinal hemorrhage, unspecified (principal); D68.51 Activated protein C resistance; I27.82 Chronic pulmonary embolism; Z68.43 Body mass index [BMI] 50.0-59.9, adult; I82.509 Chronic embolism and thrombosis of unspecified deep veins of unspecified lower extremity; D62 Acute posthemorrhagic anemia; K74.60 Unspecified cirrhosis of liver; E66.01 Morbid (severe) obesity due to excess calories; I10 Essential (primary) hypertension; I73.9 Peripheral vascular disease, unspecified; R07.9 Chest pain, unspecified; Z79.01 Long term (current) use of anticoagulants; Z79.4 Long term (current) use of insulin; I25.10 Atherosclerotic heart disease of native coronary artery without angina pectoris; Z95.5 Presence of coronary angioplasty implant and graft; B19.20 Unspecified viral hepatitis C without hepatic coma
CPT/HCPCS: A9270; C9113; J2405; J3010; J7030; J7040; J7050; J7060; P9017; Q9967

== ENCOUNTER → 2016-11-13 | Outpatient (CLI) | payer MEDICAID ==
[~2016-11-13] MED LIST changes: +COUMADIN **IA1 MG PO; +DICLOFENAC SODI75 MG PO; +DOXYCYCLINE100 MG PO; +MAG-OX-400(241400 MG PO; +PROTONIX40 MG PO; +ULTRAM50 MG PO
== END | disposition disaster alternative care site (69) ==
LOC: GRAD 11-12 09:00
DX: K74.60 Unspecified cirrhosis of liver (principal); K80.20 Calculus of gallbladder without cholecystitis without obstruction; R16.2 Hepatomegaly with splenomegaly, not elsewhere classified

== ENCOUNTER 2016-11-14 22:01 | Emergency (ER) | payer MEDICAID ==
--- NOTE | ~2016-11-14 | ER ---
PATIENT'S NAME: HARESH PRINCE [facility] AGE: 50 Y [address] ROOM: [place] [address] LOCATION: [facility] ADMIT DATE: 11/14/2016 ER/Outpatient Report DISCHARGE DATE: 11/15/2016 FAMILY PHYSICIAN: Satya Gonzalez PA-C ATTENDING PHYSICIAN: Merlene Nicolas Admission date and time documented on the medical record. I saw the patient at 2250 hours. CHIEF COMPLAINT: Abdominal pain, shortness of breath, chest pain, nausea, vomiting, diarrhea, fatigue, dizziness. HISTORY OF PRESENT ILLNESS: The patient is a 50-year-old male, who developed some anterior chest pain yesterday for few hours. He has not had any sense. He started to have nausea and vomiting this morning and diarrhea. He had some blood in his diarrhea. Has some mid to lower abdominal pain accompanied with fatigue, tiredness, dizziness, and lightheadedness. Abdominal pain is sharp, stabbing in nature. No fever, chills, or sweats. No recent coughs, colds, or flus. No headache, eyes, ears, nose, throat, neck, or spine pain. No syncope or near syncope. No fall or trauma. Right now, he is having no chest pain, but some shortness of breath. Abdominal pain persists along with nausea and vomiting. No urinary symptoms. No joint or muscle swelling, redness, or pain. No skin eruptions or rash. No history of neuro changes or psych issues. Does have insulin-dependent diabetes mellitus type 2. HOME MEDICATIONS: See attached medication list. ALLERGIES: PENICILLIN. SOCIAL HISTORY: Nonsmoker for 11 years. Nondrinker. SIGNIFICANT PAST MEDICAL HISTORY: Atherosclerotic ischemic heart disease, coronary artery disease, peripheral vascular disease, insulin-dependent diabetes mellitus type 2, exogenous obesity, hypertension, remote tobacco, alcohol abuse, deep vein thrombosis, anticoagulation with Coumadin, hemorrhoids, GI bleed, cirrhosis, and factor V Leiden mutation. OPERATIONS: Colonoscopy, catheterization with IVC filter placement, cystoscopy, and PATIENT'S NAME: HARESH PRINCE [facility] AGE: 50 Y [address] ROOM: [place] [address] LOCATION: [facility] ADMIT DATE: 11/14/2016 ER/Outpatient Report DISCHARGE DATE: 11/15/2016 FAMILY PHYSICIAN: Satya Gonzalez PA-C ATTENDING PHYSICIAN: Merlene Nicolas umbilical herniorrhaphy. REVIEW OF SYSTEMS: All systems reviewed by me are negative with the exception of those discussed in the history of present illness. PHYSICAL EXAMINATION: VITAL SIGNS: Pulse 100, respirations 20, blood pressure 135/88, O2 saturation on room air is 97%. HEAD: Normocephalic. EYES, EARS, NOSE, THROAT: Clear. Mucous membranes moist. NECK: Negative. SPINE: Negative. LUNGS: Clear good air flow. No rales, rhonchi, or wheezes. HEART: Regular. Pulses are palpable. No chest wall or ribcage pain to palpation. ABDOMEN: Obese, soft, some generalized tenderness. Bowel tones present. No organomegaly or abnormal mass palpable. No CVA tenderness. EXTREMITIES: Without peripheral edema, cyanosis, or deformity. NEUROVASCULAR: Intact. SKIN: Clear. No skin eruptions or rash. LABORATORY DATA AND X-RAYS: Occult blood on rectal exam was positive. White count was 4300, 57 segs, 34 lymphs, 6 monos, 3 eos, 1 baso; hemoglobin is 10.6, stable for him; hematocrit 35; platelet count 142. PTT was 34. Pro-time is 19.2 with an INR 1.82. H pylori was positive. CMS was normal except an elevated glucose of 168, low calcium of 8.2, slightly elevated AST of 41. Magnesium was 2.1. Amylase lipase were normal. CPK was 85. CK-MB was 0.6. Troponin was less than 0.4. CRP was 0.98. Thyroid studies were normal. Clot tube drawn. Lactate was 1.45. Procalcitonin was less than 0.05. Chest x-ray showed no acute infiltrate or changes. We will review x-ray with the radiologist. EKG showed sinus rhythm. No acute ST elevation, ischemic change, or arrhythmia. CT scan of the abdomen and pelvis showed liver cirrhosis and nodular liver surface. No hepatic masses. Splenomegaly was present. Cholelithiasis was present. No adjacent inflammatory changes were seen, however. CT scan was read by Radiology, see dictated transcribed report. IMPRESSION: 1. Abdominal pain with nausea and vomiting, etiology uncertain. He does have cholelithiasis without adjacent inflammatory changes on the CT scan. He is positive for Helicobacter pylori. 2. Transient chest pain. Normal EKG and cardiac enzymes with a history of atherosclerotic ischemic heart disease with coronary artery disease. 3. Hemoccult positive stool, etiology uncertain. Has had colonoscopy PATIENT'S NAME: HARESH PRINCE [facility] AGE: 50 Y [address] ROOM: [place], [place] [address] LOCATION: [facility] ADMIT DATE: 11/14/2016 ER/Outpatient Report DISCHARGE DATE: 11/15/2016 FAMILY PHYSICIAN: Satya Gonzalez PA-C ATTENDING PHYSICIAN: Merlene Nicolas recently, which was negative except for hemorrhoids. 4. Insulin-dependent diabetes mellitus type 2. 5. Peripheral vascular disease. 6. Exogenous obesity. 7. Hypertension. 8. Remote tobacco and alcohol abuse. 9. History of chronic anticoagulation with Coumadin for DVT. The patient does have an IVC filter. 10. Liver cirrhosis secondary to previous alcohol abuse. PLAN: The patient was given IV normal saline and fluids, given fentanyl for pain and Zofran for nausea and vomiting. Dismissed the patient home. Observation. Activity as tolerated. Clear liquid diet for 24 hours and advance diet as tolerated. Avoid fatty, greasy, and fried foods. Avoid alcohol, nicotine, and caffeine. Start him on Pepto-Bismol tablets two tablets four times a day for 2 weeks, tetracycline 500 mg 4 times a day for 2 weeks, Flagyl 500 mg 3 times a day for 2 weeks, omeprazole one a day, Zofran as needed for nausea and vomiting, [place] as needed for pain. Follow up with personal physician in 4 to 5 days. Discussion ensued with the patient concerning my findings and recommendations, he understands. MERLENE NICOLAS MD SDS/modl /[id number] d: 11/15/16223 t: 11/15/161811, OUTPATIENT REPORT
[2016-11-14 22:46] LABS: BASOPHIL % 0.7 %; EOSINOPHIL # 0.1 K/uL (0.0-0.5); EOSINOPHIL % 2.5 %; HEMOGLOBIN 10.6 g/dL (12.0-17.0); IMMATURE GRANULOCYTE % 0.2 %; LYMPHOCYTE # 1.5 K/uL (0.8-4.0); LYMPHOCYTE % 33.5 %; MCH 26.2 pg (27.0-34.0); MCHC 30.3 gm/dL (32.0-36.5); MCV 86.6 fl (83.0-98.0); MONOCYTE # 0.3 K/uL (0.0-1.0); MONOCYTE % 5.8 %; MPV 10.6 fl (9.4-12.4); NEUTROPHIL # (ANC) 2.5 K/uL (1.4-9.0); NEUTROPHIL % 57.3 %; NRBC % 0 /100WBC (0-0.00); RBC 4.04 M/uL (4.00-6.00); RDW-CV 14.8 % (11.9-14.6); WBC 4.3 K/uL (4.0-11.0)
[2016-11-14 22:49] LABS: PLATELET COUNT 142 K/uL (150-450)
[2016-11-14 22:57] LABS: INR - (THERAPEUTIC) 1.82 (0.92-1.07); PROTIME 19.2 SECONDS (9.8-11.4); PTT 34 SECONDS (25-32)
[2016-11-14 23:13] LABS: ALBUMIN 2.9 gm/dL (3.5-5.0); ALK PHOS 104 IU/L (33-138); ALT 44 IU/L (12-78); AST 41 IU/L (10-40); BLOOD UREA NITROGEN 10 mg/dL (6-24); CALCIUM 8.2 mg/dL (8.5-10.5); CHLORIDE 110 mMol/L (96-110); CO2 23 mMol/L (22-32); CPK 85 IU/L (35-332); CREATININE 0.8 mg/dL (0.6-1.3); ESTIMATED GFR (MDRD EQUATION) > 60; MAGNESIUM 2.1 mg/dL (1.8-2.6); SODIUM 142 mMol/L (135-145); TOTAL BILIRUBIN 0.4 mg/dL (0.0-1.5)
== END 2016-11-15 00:59 | disposition disaster alternative care site (69) ==
LOC: GMED 22:01
PROVIDERS: Emergency Medicine
DX: K80.20 Calculus of gallbladder without cholecystitis without obstruction (principal); R07.9 Chest pain, unspecified; B96.81 Helicobacter pylori [H. pylori] as the cause of diseases classified elsewhere; R19.5 Other fecal abnormalities; K64.9 Unspecified hemorrhoids; E11.9 Type 2 diabetes mellitus without complications; I73.9 Peripheral vascular disease, unspecified; E66.09 Other obesity due to excess calories; I10 Essential (primary) hypertension; I25.2 Old myocardial infarction; K74.60 Unspecified cirrhosis of liver; D68.51 Activated protein C resistance; I25.10 Atherosclerotic heart disease of native coronary artery without angina pectoris; Z86.718 Personal history of other venous thrombosis and embolism; Z88.0 Allergy status to penicillin; Z79.01 Long term (current) use of anticoagulants; Z98.890 Other specified postprocedural states; Z87.891 Personal history of nicotine dependence; Z87.19 Personal history of other diseases of the digestive system
CPT/HCPCS: C9113; J2405; J3010; J7030; Q9967

== ENCOUNTER 2016-12-09 19:40 | Emergency (ER) | payer MEDICAID ==
--- NOTE | ~2016-12-09 | ER ---
PATIENT'S NAME: HARESH PRINCE [facility] AGE: 51 Y [address] ROOM: [place] [address] LOCATION: [facility] ADMIT DATE: 12/09/2016 ER/Outpatient Report DISCHARGE DATE: 12/09/2016 FAMILY PHYSICIAN: Satya Gonzalez PA-C ATTENDING PHYSICIAN: Cindi Morrison Time of Arrival: 1938 hours. Time of Evaluation: 1944 hours. CHIEF COMPLAINT: Weakness. HISTORY OF PRESENT ILLNESS: The patient states he did see his primary provider, Dr. Gonzalez, in [place] today. They redressed his left lower leg. States he has just been very fatigued today. He has had a headache and dizziness. He has felt somewhat short of breath. He has been nauseated, did vomit x3, has some generalized abdominal discomfort. Denies having any chest pain. He did have to be assisted out of the car and placed on the cart due to the weakness. ALLERGIES: PENICILLIN. CURRENT MEDICATIONS: On his chart and reviewed by me. PAST MEDICAL HISTORY: Liver cirrhosis, atherosclerotic heart disease, coronary artery disease, peripheral vascular disease, insulin-dependent diabetic type 2, obesity, hypertension, DVT, hepatitis C, and cellulitis of the left leg. He has factor V Leiden mutation also. PAST SURGERIES: Colonoscopy, cystoscopy, and umbilical hernia repair. The patient states he has been dealing with cellulitis of the left leg for the past 4 years. SOCIAL HISTORY: Denies use of tobacco, drugs, and alcohol. He did just recently get out of penitentiary, had been in penitentiary for the past 15 years. REVIEW OF SYSTEMS: All negative other than those mentioned in the HPI. PHYSICAL EXAMINATION: VITAL SIGNS: He weighed 180.9 kg, blood pressure was 140/81, pulse of 102, PATIENT'S NAME: HARESH PRINCE [facility] AGE: 51 Y [address] ROOM: [place] [address] LOCATION: [facility] ADMIT DATE: 12/09/2016 ER/Outpatient Report DISCHARGE DATE: 12/09/2016 FAMILY PHYSICIAN: Satya Gonzalez PA-C ATTENDING PHYSICIAN: Cindi Morrison respirations 18, temperature of 98.9, and O2 saturation was 97% on room air. GENERAL: He is awake, alert, and oriented x4. SKIN: [place], warm, and dry. RESPIRATIONS: Even and nonlabored. Lung sounds are clear throughout. HEART: Regular rate and rhythm. ABDOMEN: Round. Soft. Bowel sounds are present. He does have a reddened area in the right lower abdomen that is nontender to touch. He also has an area of the left umbilical area that is tender to touch. EXTREMITIES: He has a dressing on his left lower leg. He is able to wiggle his toes. He has strong pedal pulses. EMERGENCY DEPARTMENT COURSE: Saline lock was initiated. Lab work was drawn. Fluids of normal saline were started at a wide-open rate. CBC shows a white count of 4.7, hemoglobin was 11 with hematocrit of 34.5. Sedimentation rate was 47. His INR was 1.09. He is on Coumadin. Chem panel shows a glucose of 199, AST was 59 with an ALT of 52, CRP was 1.07. Procalcitonin was negative. Acetone was negative. Lactate was 2.3. He was given fluids of normal saline. His venous gases show a pH of 7.49 and pCO2 of 36 with a bicarb of 27.4. He was given fentanyl 50 mcg IV for pain. It was repeated x1. He continued to have abdominal discomfort. CT scan was completed. Radiologist reports cirrhotic liver with splenomegaly, enteritis of the right abdomen, and umbilical hernia. The patient was assisted in sitting up, tolerated that well. Denies being dizzy or lightheaded. IMPRESSION: Abdominal pain with umbilical hernia. PLAN: The patient was given Percocet 5/325 x1 tablet. He will be discharged home. Rest. Continue his current medications. [place] as prescribed. He is to follow up with Dr. Gonzalez within the next 2 to 3 days if his symptoms persist or worsen. He verbalized understanding. GENEVA KONG APRN FOR MD BEULAH RANDHAWA/gabriele /[id number] d: 12/10/16 0248 t: 12/11/161955, OUTPATIENT REPORT
[2016-12-09 20:14] LABS: BASOPHIL % 0.9 %; EOSINOPHIL # 0.2 K/uL (0.0-0.5); EOSINOPHIL % 3.2 %; HEMATOCRIT 34.5 % (37.0-53.0); IMMATURE GRANULOCYTE % 0.2 %; LYMPHOCYTE # 1.6 K/uL (0.8-4.0); LYMPHOCYTE % 34.5 %; MCH 27.6 pg (27.0-34.0); MCHC 31.9 gm/dL (32.0-36.5); MCV 86.5 fl (83.0-98.0); MONOCYTE # 0.3 K/uL (0.0-1.0); MONOCYTE % 7.3 %; MPV 11.2 fl (9.4-12.4); NEUTROPHIL # (ANC) 2.5 K/uL (1.4-9.0); NEUTROPHIL % 53.9 %; NRBC % 0 /100WBC (0-0.00); PLATELET COUNT 144 K/uL (150-450); RBC 3.99 M/uL (4.00-6.00); RDW-CV 15.1 % (11.9-14.6); WBC 4.7 K/uL (4.0-11.0)
[2016-12-09 20:15] LABS: BICARBONATE 27.4 mmol/L (18.0-23.0); LACTATE 2.3 mEq/L (0.50-1.60); PCO2 36 mmHg (35-45); PO2 90 mmHg (80-90)
[2016-12-09 20:26] LABS: PTT 26 SECONDS (25-32)
[2016-12-09 20:30] LABS: INR - (THERAPEUTIC) 1.09 (0.92-1.07); PROTIME 11.5 SECONDS (9.8-11.4)
[2016-12-09 20:38] LABS: ALBUMIN 2.8 gm/dL (3.5-5.0); ALK PHOS 109 IU/L (33-138); ALT 52 IU/L (12-78); ANION GAP 10.1 (10.0-19.0); AST 59 IU/L (10-40); BLOOD UREA NITROGEN 11 mg/dL (6-24); CALCIUM 8.4 mg/dL (8.5-10.5); CHLORIDE 106 mMol/L (96-110); CO2 25 mMol/L (22-32); CREATININE 0.9 mg/dL (0.6-1.3); ESTIMATED GFR (MDRD EQUATION) > 60; POTASSIUM 4.1 mMol/L (3.7-5.1); SODIUM 137 mMol/L (135-145); TOTAL BILIRUBIN 0.6 mg/dL (0.0-1.5); TOTAL PROTEIN 7.5 g/dL (6.0-8.4)
== END 2016-12-09 22:48 | disposition disaster alternative care site (69) ==
LOC: GMED 19:40
PROVIDERS: Nurse Practitioner Family
DX: K42.9 Umbilical hernia without obstruction or gangrene (principal); I25.10 Atherosclerotic heart disease of native coronary artery without angina pectoris; E11.9 Type 2 diabetes mellitus without complications; E66.9 Obesity, unspecified; I10 Essential (primary) hypertension; I73.9 Peripheral vascular disease, unspecified; Z88.0 Allergy status to penicillin
CPT/HCPCS: J3010; J7030; Q9967

== ENCOUNTER 2017-01-03 14:34 | Emergency (ER) | payer MEDICAID ==
--- NOTE | ~2017-01-03 | ER ---
PATIENT'S NAME: HARESH PRINCE [facility] AGE: 51 Y [address] ROOM: [place] [address] LOCATION: [facility] ADMIT DATE: 01/03/2017 ER/Outpatient Report DISCHARGE DATE: 01/03/2017 FAMILY PHYSICIAN: Satya Gonzalez PA-C ATTENDING PHYSICIAN: José Luis Byrd Time of arrival: 1432 hours. Time of evaluation: 1432 hours. CHIEF COMPLAINT: Left shoulder pain. HISTORY OF PRESENT ILLNESS: The patient is a 51-year-old male presents to the emergency department today with chief complaint of bilateral pain to his sides, left shoulder pain, as well as some abdominal pain. He does report history of similar episodes in the past. He did require quite a bit of shaking to arouse while at home by his girlfriend. She reports this is unusual for him. Checked his blood sugar and it was in the 200s range. He reports the pain is sharp. It is currently 8/10 in severity. It is worse with movement and worse with touch. He denies any fevers or chills. No nausea or vomiting. No diarrhea or constipation. PAST MEDICAL HISTORY: Liver cirrhosis, coronary artery disease, peripheral vascular disease, insulin- dependent diabetes type 2, obesity, hypertension, DVT, hepatitis C, cellulitis left leg, and factor V Leiden. PAST SURGICAL HISTORY: Colonoscopy, cystoscopy, and umbilical hernia. SOCIAL HISTORY: He does report half pack per day for 35 years. Denies any alcohol or illicit drug use. He did recently get out of nursing home. He was in nursing home for 15 years. ALLERGIES: PENICILLIN. MEDICATIONS: Please see list. PRIMARY CARE DOCTOR: Satya Gonzalez PA-C. REVIEW OF SYSTEMS: All systems are reviewed by myself and negative with the exception of those PATIENT'S NAME: HARESH PRINCE [facility] AGE: 51 Y [address] ROOM: [place] [address] LOCATION: ED ADMIT DATE: 01/03/2017 ER/Outpatient Report DISCHARGE DATE: 01/03/2017 FAMILY PHYSICIAN: Satya Gonzalez PA-C ATTENDING PHYSICIAN: José Luis Byrd discussed in HPI and past medical history. PHYSICAL EXAMINATION: VITAL SIGNS: Weight 182 kg. Blood pressure 139/90, pulse 102, respiratory rate 20, temperature 98.7, and oxygen saturation 96% on room air. GENERAL: The patient is a 51-year-old male, who appears stated age. He is obese. Mild diffuse tenderness to palpation. HEENT: Normocephalic and atraumatic. Pupils are equal, round, and reactive to light. Extraocular motions are intact. Nares are patent bilaterally. TMs are clear. Oropharynx is clear. Mucous membranes moist. NECK: Supple. There is no nuchal rigidity. CARDIOVASCULAR: Tachycardic. No murmurs, rubs, or gallops. LUNGS: Clear to auscultation bilaterally. No wheezes, rales, or rhonchi. ABDOMEN: Soft, nontender, and nondistended. No rebound, rigidity, or guarding. MUSCULOSKELETAL: The patient has tenderness to palpation of the left shoulder as well as the bilateral ribs on sides. SKIN: Warm and dry. There are no rashes or lesions noted. LABORATORY DATA AND X-RAYS: Venous blood gas, 7.48/33/107/25/1.5. Lactate is 2.0. CBC: White blood cell count 3.3, hemoglobin 10.9, hematocrit 34.5 and platelets 131. INR is 1.37. CMP is unremarkable except for glucose of 237. EKG, sinus tachycardia with a rate of 102 normal axis, normal interval. No ST elevation, ST depression, T- wave inversions. Prolactin is normal. D-dimer is elevated at 1.36. Procalcitonin is normal. EKG at 2 hours repeated and shows sinus rhythm with a rate of 91, normal axis, normal interval. No ST elevation, ST depression, T- wave inversions. A CT scan of the brain is obtained. I have discussed results with the radiologist, shows no acute process. CT scan of the chest is obtained, shows no evidence of PE and no other acute process is noted. IMPRESSION: 1. Left shoulder pain. 2. Bilateral rib pain. 3. Acute nonsurgical midepigastric abdominal pain. 4. Initial visit. EMERGENCY DEPARTMENT COURSE: The patient was brought back to the examination room. Seen and evaluated by myself. IV is established. Laboratory analysis and imaging are obtained as described above. I have discussed the results with the patient. He does report he has an appointment with Obed Gonzalez tomorrow. He reports he feels significantly improved at this time. I am unclear as to the exact etiology of his symptomatology. I do not see anything dangerous to carry at this time. I have stressed the importance to follow up with Oebd Gonzalez tomorrow. His vital PATIENT'S NAME: HARESH PRINCE [facility] AGE: 51 Y [address] ROOM: [place] [address] LOCATION: [facility] ADMIT DATE: 01/03/2017 ER/Outpatient Report DISCHARGE DATE: 01/03/2017 FAMILY PHYSICIAN: Satya Gonzalez PA-C ATTENDING PHYSICIAN: José Luis Byrd signs are normal. His lab work is unremarkable. Imaging is unremarkable. He has a nonsurgical abdominal exam. I do feel he is safe for outpatient evaluation. I have written a prescription for Wishon for pain with sedation warning. I have discussed return to care instructions including worsening symptoms or any other concerns. Return to the emergency department as soon as possible. The patient is agreeable without further questions. DISPOSITION: The patient discharged home in good condition indication. DO AMY CELAYA/gabriele /[id number] d: 01/04/17 0036 t: 01/06/17 0700, OUTPATIENT REPORT
[2017-01-03 15:14] LABS: BASOPHIL % 0.3 %; EOSINOPHIL # 0.1 K/uL (0.0-0.5); EOSINOPHIL % 3.3 %; HEMATOCRIT 34.5 % (37.0-53.0); HEMOGLOBIN 10.9 g/dL (12.0-17.0); IMMATURE GRANULOCYTE % 0.3 %; LYMPHOCYTE # 1.1 K/uL (0.8-4.0); LYMPHOCYTE % 32.9 %; MCHC 31.6 gm/dL (32.0-36.5); MCV 85.4 fl (83.0-98.0); MONOCYTE # 0.2 K/uL (0.0-1.0); MONOCYTE % 6.6 %; MPV 10.7 fl (9.4-12.4); NEUTROPHIL # (ANC) 1.9 K/uL (1.4-9.0); NEUTROPHIL % 56.6 %; NRBC % 0 /100WBC (0-0.00); PLATELET COUNT 131 K/uL (150-450); RBC 4.04 M/uL (4.00-6.00); RDW-CV 15.5 % (11.9-14.6); WBC 3.3 K/uL (4.0-11.0)
[2017-01-03 15:15] LABS: BICARBONATE 24.6 mmol/L (18.0-23.0); PCO2 33 mmHg (35-45); PO2 107 mmHg (80-90)
[2017-01-03 15:24] LABS: PTT 28 SECONDS (25-32)
[2017-01-03 15:30] LABS: INR - (THERAPEUTIC) 1.37 (0.92-1.07); PROTIME 14.4 SECONDS (9.8-11.4)
[2017-01-03 15:34] LABS: ALBUMIN 2.7 gm/dL (3.5-5.0); ALK PHOS 96 IU/L (33-138); ALT 41 IU/L (12-78); ANION GAP 10.8 (10.0-19.0); AST 42 IU/L (10-40); BLOOD UREA NITROGEN 11 mg/dL (6-24); CALCIUM 8.3 mg/dL (8.5-10.5); CHLORIDE 110 mMol/L (96-110); CO2 23 mMol/L (22-32); CPK 54 IU/L (35-332); CREATININE 0.8 mg/dL (0.6-1.3); ESTIMATED GFR (MDRD EQUATION) > 60; MAGNESIUM 1.9 mg/dL (1.8-2.6); POTASSIUM 3.8 mMol/L (3.7-5.1); SODIUM 140 mMol/L (135-145); TOTAL BILIRUBIN 0.6 mg/dL (0.0-1.5); TOTAL PROTEIN 7.6 g/dL (6.0-8.4)
[2017-01-03 17:35] LABS: CPK 53 IU/L (35-332)
== END 2017-01-03 18:01 | disposition disaster alternative care site (69) ==
LOC: GMED 14:34
PROVIDERS: Emergency Medicine
DX: M25.512 Pain in left shoulder (principal); R07.81 Pleurodynia; R10.13 Epigastric pain; I25.10 Atherosclerotic heart disease of native coronary artery without angina pectoris; K74.60 Unspecified cirrhosis of liver; I73.9 Peripheral vascular disease, unspecified; E11.9 Type 2 diabetes mellitus without complications; I10 Essential (primary) hypertension; E66.9 Obesity, unspecified; F17.210 Nicotine dependence, cigarettes, uncomplicated; Z98.890 Other specified postprocedural states; Z88.0 Allergy status to penicillin; Z79.01 Long term (current) use of anticoagulants
CPT/HCPCS: J2270; J7030; Q9967

== ENCOUNTER 2017-02-07 14:50 | Emergency (ER) | payer MEDICAID ==
--- NOTE | ~2017-02-07 | ER ---
PATIENT'S NAME: HARESH PRINCE [facility] AGE: 51 Y [address] ROOM: [place] [address] LOCATION: [facility] ADMIT DATE: 02/07/2017 ER/Outpatient Report DISCHARGE DATE: 02/07/2017 FAMILY PHYSICIAN: Satya Gonzalez PA-C ATTENDING PHYSICIAN: Amanda Byrd TIME OF ARRIVAL: 1450 hours. TIME OF EXAM: 1452 hours. CHIEF COMPLAINT: Epigastric pain as well as chest pain. HISTORY OF PRESENT ILLNESS: This is a 51-year-old male from [place], who presented via EMS for chest pain that then radiated to his epigastrium. He reports that the pain started 15 minutes prior to calling the squad and then was transported from [place] to [facility]. He reports that the pain is severe in nature and it feels like a pressure and a stabbing pain. Denies any ripping or tearing in his chest and reports that the pain is no longer in his chest, but in his epigastrium only. He has been vomiting during transport as well as in the ER here. He has been admitted in the past for GI bleed. Currently denies dizziness, lightheadedness, trouble swallowing, vision changes. No shortness of breath or chest pain. Does have nausea with vomiting as well as the epigastric pain. No problems with diarrhea, constipation, or urinary symptoms. No weakness or numbness in the extremities. Did not take any medications to try and improve the pain. Does not list any foods or other things that exacerbate the pain. PAST MEDICAL HISTORY: Significant for coronary artery disease, status post angioplasty around 11 years ago; hypertension; type 2 diabetes, on insulin; cirrhosis; hepatitis C; hiatal hernia; history of DVT with Factor V Leiden; and history of substance abuse evolving methamphetamines, cocaine, heroin, and marijuana, but reports he has been clean for 15 years. SOCIAL HISTORY: Lives at home with girlfriend and 2 stepsons. Did get out of a half-way about a year ago after being imprisoned for about 15 years for distributing methamphetamine. MEDICATIONS: 1. Hydrochlorothiazide 25 mg daily. PATIENT'S NAME: HARESH PRINCE [facility] AGE: 51 Y [address] ROOM: [place] [address] LOCATION: [facility] ADMIT DATE: 02/07/2017 ER/Outpatient Report DISCHARGE DATE: 02/07/2017 FAMILY PHYSICIAN: Satya Gonzalez PA-C ATTENDING PHYSICIAN: Amanda Byrd 2. Mag-Ox 400 a daily. 3. Gabapentin 300 mg t.i.d. 4. Lisinopril 20 mg daily. 5. Aspirin 81 mg daily. 6. Potassium chloride 20 mEq everyday. 7. Warfarin 7.5 mg daily. 8. Metoprolol 50 mg b.i.d. 9. Amitriptyline 100 mg q.h.s. 10. Metformin 1000 mg b.i.d. 11. Pentoxifylline 400 mg b.i.d. 12. Isosorbide mononitrate 30 mg q.d. 13. Nitroglycerin 0.4 mg sublingual as needed. 14. Zofran 4 mg p.r.n. 15. Lasix 20 mg b.i.d. 16. Levemir 33 units b.i.d. 17. NovoLog as per sliding scale. ALLERGIES: DENIES ANY MEDICATION ALLERGIES. REVIEW OF SYSTEMS: Complete review of systems was obtained and is as per HPI. PHYSICAL EXAMINATION: VITAL SIGNS: Blood pressure was 180/77, temperature 98, respiratory rate 16, and heart rate of 90. GENERAL: He is in in no apparent distress, although then later vomited during examination. He is a morbidly obese male. HEENT: Dry mucous membranes. Pupils were equal, round, and reactive to light. CARDIOVASCULAR: Heart: Borderline tachycardic. Regular rhythm. LUNGS: Mildly diminished given body habitus, otherwise clear. ABDOMEN: Positive bowel sounds. Tenderness to palpation in the epigastrium and left upper quadrant. No rebound, rigidity, or guarding. EXTREMITIES: Changes associated with venostasis in the lower extremities as well as a healing abrasion to the left montalvo. LABORATORY DATA: EKG showing a normal sinus rhythm with heart rate of 91, normal axis, no ischemic changes seen. Read per the EKG as a normal EKG. CMS is positive for glucose of 274, magnesium is 2.0, troponin is negative. On initial exam, he is positive for H. pylori IgG in the serum. Lipase is normal. CBC pertinent for white blood count of 3.7, hemoglobin of 10.8, platelets of 140. INR is 1.05. IMPRESSION: 1. Helicobacter pylori gastritis. PATIENT'S NAME: HARESH PRINCE [facility] AGE: 51 Y [address] ROOM: [place] [address] LOCATION: [facility] ADMIT DATE: 02/07/2017 ER/Outpatient Report DISCHARGE DATE: 02/07/2017 FAMILY PHYSICIAN: Satya Gonzalez PA-C ATTENDING PHYSICIAN: Amanda Byrd 2. Chest pain. EMERGENCY DEPARTMENT COURSE: Thus far, we have given him a liter of normal saline, morphine for pain, Zofran for nausea, as well as GI cocktail. He did vomit with p.o. challenge, have re-dosed Zofran, and we will re-try p.o. challenge. Currently awaiting troponin. If he is able to tolerate p.o. challenge without further emesis, we will plan to discharge home if troponin is normal, otherwise we will admit to inpatient for monitoring. CARRIE BECKETT MD FOR AMANDA BYRD DO CW/modl /[id number] ATTENDING ADDENDUM: The patient was seen and evaluated by myself in conjunction with the resident. I have reviewed and agree with the note above and the plan of care that is discussed in the note above. I do feel the patient's pain is consistent with pain from gastritis/espohagitis, likly due to H. pylori. I have stressed that he take his medications as prescribed. I have also discussed the need to follow up with gastroenterology, he is to call for this appointment. AMANDA BYRD DO d: 02/07/17 2249 t: 02/09/17 1341, OUTPATIENT REPORT
[2017-02-07 15:16] LABS: BASOPHIL % 0.8 %; EOSINOPHIL # 0.1 K/uL (0.0-0.5); EOSINOPHIL % 2.1 %; HEMATOCRIT 34.3 % (37.0-53.0); HEMOGLOBIN 10.8 g/dL (12.0-17.0); IMMATURE GRANULOCYTE % 0.3 %; LYMPHOCYTE # 0.9 K/uL (0.8-4.0); LYMPHOCYTE % 24.7 %; MCH 27.1 pg (27.0-34.0); MCHC 31.5 gm/dL (32.0-36.5); MCV 86.2 fl (83.0-98.0); MONOCYTE # 0.2 K/uL (0.0-1.0); MONOCYTE % 6.4 %; MPV 10.6 fl (9.4-12.4); NEUTROPHIL # (ANC) 2.5 K/uL (1.4-9.0); NEUTROPHIL % 65.7 %; NRBC % 0 /100WBC (0-0.00); PLATELET COUNT 140 K/uL (150-450); RBC 3.98 M/uL (4.00-6.00); RDW-CV 15.3 % (11.9-14.6); WBC 3.7 K/uL (4.0-11.0)
[2017-02-07 15:25] LABS: PTT 25 SECONDS (25-32)
[2017-02-07 15:28] LABS: INR - (THERAPEUTIC) 1.05 (0.92-1.07)
[2017-02-07 15:37] LABS: ALBUMIN 2.8 gm/dL (3.5-5.0); ALK PHOS 105 IU/L (33-138); ALT 37 IU/L (12-78); ANION GAP 11.2 (10.0-19.0); AST 35 IU/L (10-40); BLOOD UREA NITROGEN 7 mg/dL (6-24); CALCIUM 8.7 mg/dL (8.5-10.5); CHLORIDE 107 mMol/L (96-110); CO2 23 mMol/L (22-32); CPK 68 IU/L (35-332); CREATININE 0.8 mg/dL (0.6-1.3); POTASSIUM 4.2 mMol/L (3.7-5.1); SODIUM 137 mMol/L (135-145); TOTAL BILIRUBIN 0.6 mg/dL (0.0-1.5); TOTAL PROTEIN 7.4 g/dL (6.0-8.4)
[2017-02-07 18:07] LABS: CPK 64 IU/L (35-332)
== END 2017-02-07 18:45 | disposition disaster alternative care site (69) ==
LOC: GMED 14:50
PROVIDERS: Emergency Medicine
DX: R07.89 Other chest pain (principal); K29.70 Gastritis, unspecified, without bleeding; B96.81 Helicobacter pylori [H. pylori] as the cause of diseases classified elsewhere; I10 Essential (primary) hypertension; E11.9 Type 2 diabetes mellitus without complications; I25.10 Atherosclerotic heart disease of native coronary artery without angina pectoris; B19.20 Unspecified viral hepatitis C without hepatic coma; Z95.5 Presence of coronary angioplasty implant and graft; Z86.718 Personal history of other venous thrombosis and embolism; Z79.82 Long term (current) use of aspirin; Z79.84 Long term (current) use of oral hypoglycemic drugs; Z79.01 Long term (current) use of anticoagulants; Z79.4 Long term (current) use of insulin; Z79.899 Other long term (current) drug therapy; Z88.0 Allergy status to penicillin
CPT/HCPCS: J2270; J2405; J7030